=== PATIENT | male | born 1955 | race Caucasian/White ===

== ENCOUNTER 2020-09-15 10:10 | Emergency (ER) | payer OTHER, SELFPAY ==
[2020-09-15 10:32] VITALS: BP 133/76; PULSE 72; RESP 18; TEMP 36.6; O2SAT 96; BMI 30.5
--- NOTE | 2020-09-15 10:39 | CT_ITS ---
EXAMINATION: CT ABDOMEN AND PELVIS WITHOUT CONTRAST CLINICAL INFORMATION: Left-sided abdominal and flank pain COMPARISON: Previous abdominal ultrasound from 2011 TECHNIQUE: Multidetector volumetric imaging was performed from the superior aspect of the liver through the pubic symphysis. Sagittal and coronal reformatted images were obtained on the technologist's workstation. This CT examination was performed using dose optimization techniques as appropriate, variously including the following: *Automated exposure control *Adjustment of mA and/or kV according to patient size (this includes techniques or standardized protocols for targeted exams where dose is matched to indication/reason for exam; i.e. extremities or head) *Use of iterative reconstruction technique DLP: 579 mGy-cm FINDINGS: LUNG BASES: The visualized lung bases are unremarkable. LIVER, GALLBLADDER, AND BILIARY TREE: The liver is normal in size, shape, and attenuation. No focal hepatic lesion or biliary ductal dilatation is present. The gallbladder is unremarkable with no evidence of radiopaque gallstones, gallbladder wall thickening, or obvious pericholecystic inflammatory changes. PANCREAS: Unremarkable. SPLEEN: Unremarkable. ADRENAL GLANDS: Unremarkable. KIDNEYS AND URETERS: There are 2 small 1 to 2 mm nonobstructing stones in the upper and midpole of the right kidney. No left renal stone is seen. No hydronephrosis, ureteral dilatation or ureteral stone is seen. BLADDER: Not optimally distended and not well evaluated. GASTROINTESTINAL TRACT: There is mild diverticulosis of the colon. Small and large bowel is otherwise unremarkable. The appendix is unremarkable. The stomach is unremarkable. ABDOMINAL WALL: There may be a small left inguinal hernia containing fat. LYMPH NODES: Normal. VASCULAR: Unremarkable. PELVIC VISCERA: Unremarkable. OSSEOUS STRUCTURES: There are mild degenerative changes of the spine. There are several small sclerotic lesions in the pelvis, largest measuring 7 mm in the left iliac bone next to the sacroiliac joint. This is these are nonspecific and may represent bone islands. CT/CT abdomen pelvis wo con IMPRESSION: Small nonobstructing right renal stones. No left-sided stone or hydronephrosis seen. Mild diverticulosis of the colon.
[2020-09-15 11:18] LABS: Glucose Urine UA 500 MG/DL (NEG); Leukocyte Esterase Urine NEG (NEG); MANUAL DIFF FLAG NO; Nitrite Urine NEG (NEG); PH 5.5 (5.0-8.0); Specific Gravity - Urine 1.025 (1.005-1.025); Urine Blood NEG (NEG); Urine Ketones NEG (NEG); Urine Protein NEG (NEG-TRACE)
[2020-09-15 11:19] LABS: Basophils Percent Auto 0.5 % (0-2); Eosinophils Absolute Auto 0.2 X10*3/uL (0.0-0.4); Eosinophils Percent Auto 2.9 % (0-4); Hematocrit 48.5 % (42-52); Hemoglobin 15.7 g/dl (14.0-18.0); Imm Gran Abs Auto 0.01 X10*3/uL (0.00-0.03); Imm Gran Pct Auto 0.2 % (0.0-0.4); Lymphocytes Absolute Auto 2.2 X10*3/uL (1.2-4.9); Lymphocytes Percent Auto 35.3 % (20-40); Mean Corpuscular HGB Conc 32.4 g/dl (31.0-36.0); Mean Corpuscular Hemoglobin 26.5 pg (27.0-33.0); Mean Corpuscular Volume 81.8 fL (80-98); Mean Platelet Volume 10.9 fL (9.4-12.4); Monocytes Absolute Auto 0.6 X10*3/uL (0.1-1.2); Monocytes Percent Auto 10.3 % (2-11); Neutrophils Absolute Auto 3.2 X10*3/uL (2.0-8.3); Neutrophils Percent Auto 50.8 % (45-73); Platelet Count 178 X10*3/uL (160-400); Red Blood Count 5.93 X10*6/uL (4.60-5.80); Red Cell Distribution Width 14.6 % (11.0-16.0); White Blood Count 6.2 X10*3/uL (4.8-10.8)
[2020-09-15] MEDS: Ketorolac Tromethamine 30 MG/ML VIAL IM (11:20)
[2020-09-15 11:22] LABS: Appearance Urine CLEAR; Color Urine YELLOW
[2020-09-15 11:31] LABS: RBC Urine 0-2 /HPF (0); Squamous Epithelial Cell Urine TRACE /LPF; WBC Urine 0-2 /HPF (0-4)
--- NOTE | 2020-09-15 11:38 | ED.ABDPAIN ---
HPI - Abdominal Pain General Chief Complaint: Abdominal Pain Stated Complaint: back pain Time Seen by Provider: 09/15/20 10:38 Source: patient Mode of arrival: ambulatory Limitations: no limitations History of Present Illness HPI narrative: 61-year-old male with past medical significant for type 2 diabetes, dyslipidemia, hypertension, depression who presents ambulatory with complaint of left-sided lower back pain that radiates to the left side lower abdomen has been going on for the past 1 week. Care doctor on Tuesday however pain did not improve so he was advised to come here. Denies any nausea vomiting or diarrhea. Denies any hematuria or dysuria. Denies any injury. Pain is somewhat reproducible with certain body movements. States he had similar episodes in the past where he thinks it may be related to his liver but he is not sure. Denies any alcohol use. MD elicited complaint: abdominal pain Pertinent past history: none Onset (ago): day(s) Pain Consistency: intermittent Location: L flank Severity: mild Quality: aching Radiation: LLQ Migration to: no migration and LLQ Exacerbating factors: movement Relieving factors: nothing Associated symptoms: denies other symptoms Related Data Previous Rx's Medication Instructions Recorded cyclobenzaprine 5 mg PO TID PRN #20 tab 09/15/20 naproxen 500 mg PO BID PRN #14 tab 09/15/20 Allergies Allergy/AdvReac Type Severity Reaction Status Date / Time No Known Allergies Allergy Unverified 07/10/20 15:19 Seasonale Allergy Unknown Uncoded 06/11/20 00:00 Review of Systems Review of Systems Constitutional: No Weight loss, No Fever, No Chills, No Night Sweats, No Fatigue, No Malaise ENT/Mouth: No Hearing loss, No Ear Pain, No Nasal Congestion, No Sinus Pain, No Hoarseness, No sore throat, No Rhinorrhea, No Swallowing Difficulty Eyes: No Eye Pain, No Swelling, No Redness, No Foreign Body, No Discharge, No Vision Changes Cardiovascular: No Chest Pain, No SOB, No Dyspnea on Exertion, No Orthopnea, No Edema, No Palpitations Respiratory: No Cough, No Sputum, No Wheezing, No Smoke Exposure, No Dyspnea Gastrointestinal: No Nausea, No Vomiting, No Diarrhea, No Constipation, + abdominal Pain, No Hematochezia, No Melena Genitourinary: No Dysuria, No Urinary Frequency, No Hematuria, No Urinary Incontinence, No Urgency, No Flank Pain, No Urinary Flow Changes, No Hesitancy Musculoskeletal: No joint pain, No Myalgias, No Joint Swelling Skin: No Skin Lesions, No rash Neuro: No Weakness, No Numbness, No Paresthesias, No Loss of Consciousness, No Dizziness, No Headache Psych: No Anxiety/Panic Heme/Lymph: No Bruising, No Bleeding,No Lymphadenopathy Endocrine: No Polyuria, No Polydipsia, No Temperature Intolerance Yes all other systems are reviewed and are negative Physical Exam Vital Signs: Vital Signs: Last Vital Signs Temp 98 F 09/15/20 10:32 Pulse 72 09/15/20 10:32 Resp 18 09/15/20 10:32 BP 133/76 09/15/20 10:32 Pulse Ox 96 09/15/20 10:32 Body Mass Index 30.5 Reviewed Course Course Course Narrative: Labs overall stable. UA noninfected. No hematuria. CT of the abdomen pelvis without contrast shows small nonobstructing right renal stone. No left-sided stone or hydronephrosis seen. Mild diverticulosis of the colon without diverticulitis. AP/exam more indicative of musculoskeletal in etiology. Will discharge home with short course of NSAIDs/muscle relaxants and outpatient follow-up. Patient verbalized understanding and stable for discharge. All traction conducted in the presence of trolley wire installer throughout the ED visit. MDM - Abdominal Pain Differential Diagnosis Differential diagnosis: Likely abdominal pain, calculus of kidney and renal colic; Unlikely aortic dissection, acute appendicitis, bowel perforation, constipation, diverticulitis, gastroenteritis, mesenteric ischemia, pancreatitis, peptic ulcer disease and small bowel obstruction Medical Records Attestation: I reviewed the patient's medical records. Lab Data Attestation: I reviewed the patient's lab results. Result diagrams: 09/15/20 11:11 09/15/20 11:11 Labs: Lab Results 09/15/20 09/15/20 09/15/20 Range/Units 11:11 11:11 11:11 WBC 6.2 (4.8-10.8) X10*3/uL RBC 5.93 H (4.60-5.80) X10*6/uL Hgb 15.7 (14.0-18.0) g/dl Hct 48.5 (42-52) % MCV 81.8 (80-98) fL MCH 26.5 L (27.0-33.0) pg MCHC 32.4 (31.0-36.0) g/dl RDW 14.6 (11.0-16.0) % Plt Count 178 (160-400) X10*3/uL MPV 10.9 (9.4-12.4) fL Immature Gran % (Auto) 0.2 (0.0-0.4) % Neut % (Auto) 50.8 (45-73) % Lymph % (Auto) 35.3 (20-40) % [place] % (Auto) 10.3 (2-11) % Eos % (Auto) 2.9 (0-4) % Baso % (Auto) 0.5 (0-2) % Lymph # (Auto) 2.2 (1.2-4.9) X10*3/uL [place] # (Auto) 0.6 (0.1-1.2) X10*3/uL Eos # (Auto) 0.2 (0.0-0.4) X10*3/uL Baso # (Auto) 0.0 (0.0-0.2) X10*3/uL Abs Immat Gran (auto) 0.01 (0.00-0.03) X10*3/uL Absolute Neuts (auto) 3.2 (2.0-8.3) X10*3/uL Absolute Nucleated RBC 0.000 (0.0-0.012) X10*3/uL Nucleated RBC % (auto) 0.0 (0.0-0.2) /100WBC Sodium 136 (135-145) mmol/L Potassium 4.1 (3.3-5.1) mmol/l Chloride 103 (96-108) mmol/L Carbon Dioxide 25 (22-29) mmol/L Anion Gap 12 (12-20) BUN 14 (9-16) mg/dL Creatinine 0.68 (0.5-1.4) mg/dL Estim Creat Clear Calc 106.6 Estimated GFR > 60 Random Glucose 117 H (60-115) mg/dL Calcium 8.7 (8.4-10.2) mg/dL Total Bilirubin 0.6 (0.0-1.0) mg/dL AST 18 (5-37) U/L ALT 27 (0-40) U/L Alkaline Phosphatase 58 (39-117) U/L Total Protein 6.9 (6.5-8.0) g/dL Albumin 4.2 (3.5-5.0) g/dL Urine Color YELLOW Urine Appearance CLEAR Urine pH 5.5 (5.0-8.0) Ur Specific Council 1.025 (1.005-1.025) Urine Protein NEG (NEG-TRACE) MG/DL Urine Glucose (UA) 500 H (NEG) MG/DL Urine Ketones NEG (NEG) MG/DL Urine Blood NEG (NEG) Urine Nitrite NEG (NEG) Ur Leukocyte Esterase NEG (NEG) Urine RBC 0-2 (0) /HPF Urine WBC 0-2 (0-4) /HPF Ur Squamous Epith Cells TRACE /LPF Urine Bacteria NONE /LPF Imaging Data CT scan - abdomen: Radiologist's impression: [place] [id number] CT Scan Report Signed Patient: Adán LauMR#: [id number] : 7Acct:[id number] Age/Sex: 64 / MADM Date: 09/15/20 Loc: HO.ED Attending Dr: Ordering Physician: Monroe Avalos NP Date of Service: 09/15/20 Procedure(s): CT abdomen pelvis wo con Accession Number(s): [id number] cc: Monroe Avalos NP~ EXAMINATION: CT ABDOMEN AND PELVIS WITHOUT CONTRAST CLINICAL INFORMATION: Left-sided abdominal and flank pain COMPARISON: Previous abdominal ultrasound from 2011 TECHNIQUE: Multidetector volumetric imaging was performed from the superior aspect of the liver through the pubic symphysis. Sagittal and coronal reformatted images were obtained on the technologist's workstation. This CT examination was performed using dose optimization techniques as appropriate, variously including the following: *Automated exposure control *Adjustment of mA and/or kV according to patient size (this includes techniques or standardized protocols for targeted exams where dose is matched to indication/reason for exam; i.e. extremities or head) *Use of iterative reconstruction technique DLP: 579 mGy-cm FINDINGS: LUNG BASES: The visualized lung bases are unremarkable. LIVER, GALLBLADDER, AND BILIARY TREE: The liver is normal in size, shape, and attenuation. No focal hepatic lesion or biliary ductal dilatation is present. The gallbladder is unremarkable with no evidence of radiopaque gallstones, gallbladder wall thickening, or obvious pericholecystic inflammatory changes. PANCREAS: Unremarkable. SPLEEN: Unremarkable. ADRENAL GLANDS: Unremarkable. KIDNEYS AND URETERS: There are 2 small 1 to 2 mm nonobstructing stones in the upper and midpole of the right kidney. No left renal stone is seen. No hydronephrosis, ureteral dilatation or ureteral stone is seen. BLADDER: Not optimally distended and not well evaluated. GASTROINTESTINAL TRACT: There is mild diverticulosis of the colon. Small and large bowel is otherwise unremarkable. The appendix is unremarkable. The stomach is unremarkable. ABDOMINAL WALL: There may be a small left inguinal hernia containing fat. LYMPH NODES: Normal. VASCULAR: Unremarkable. PELVIC VISCERA: Unremarkable. OSSEOUS STRUCTURES: There are mild degenerative changes of the spine. There are several small sclerotic lesions in the pelvis, largest measuring 7 mm in the left iliac bone next to the sacroiliac joint. This is these are nonspecific and may represent bone islands. CT/CT abdomen pelvis wo con IMPRESSION: Small nonobstructing right renal stones. No left-sided stone or hydronephrosis seen. Mild diverticulosis of the colon. Dictated By:WILLY CHASE MD Signed By:<Electronically signed by WILLY CHASE MD in OV>09/15/20 1132 DD/ 1039 TD/TT: Tight Barrel Inspector: USAMA Discharge Plan Discharge Clinical Impression: Strain of lumbar region Patient Disposition: Home, Self-Care Instructions: Low Back Strain (ED), Lower Back Exercises (ED) Additional Instructions: Your blood work as well as the CT scan of your abdomen pelvis today did not show any signs of acute infection or kidney stone The pain that you are having is likely related to a muscle strain Take the muscle relaxants as prescribed Return if any concerns or worsening symptoms Otherwise follow up with her primary care doctor as instructed Thank you Prescriptions: New cyclobenzaprine 10 mg tablet 5 mg PO TID PRN (Reason: muscle spasm) Qty: 20 RF: 0 naproxen 500 mg tablet 500 mg PO BID PRN (Reason: pain) Qty: 14 RF: 0 PMFSH Past Medical History Medical History Depression GERD (gastroesophageal reflux disease) Hyperlipidemia Hypertension Non-insulin dependent diabetes mellitus Social History Social History Alcohol intake: never Smoking Status: Never smoker Use of substances other than those prescribed or required for medical reasons: No Advance Directives: Yes Advance Directives Information Provided: No Advance Directives on File: No
[2020-09-15 11:48] LABS: Alanine Aminotransferase 27 U/L (0-40); Albumin Level 4.2 g/dL (3.5-5.0); Alkaline Phosphatase 58 U/L (39-117); Anion Gap 12 (12-20); Aspartate Amino Transferase 18 U/L (5-37); Bilirubin Total 0.6 mg/dL (0.0-1.0); Blood Urea Nitrogen 14 mg/dL (9-16); Calcium 8.7 mg/dL (8.4-10.2); Carbon Dioxide 25 mmol/L (22-29); Chloride 103 mmol/L (96-108); Creatinine Clr Calc Pharmacy 106.6; Estimated Glomerular Filt Rate > 60; Glucose Random 117 mg/dL (60-115); Potassium 4.1 mmol/l (3.3-5.1); Sodium 136 mmol/L (135-145); Total Protein 6.9 g/dL (6.5-8.0)
== END 2020-09-15 12:52 | disposition home or self-care (01) ==
PROVIDERS: Nurse Practitioner Primary Care; Emergency Provider Emergency Medicine Emergency Medical Services; PCP Family Medicine
DX: S39.012A Strain of muscle, fascia and tendon of lower back, initial encounter (principal); R10.32 Left lower quadrant pain; X58.XXXA Exposure to other specified factors, initial encounter; Y93.9 Activity, unspecified; Y92.9 Unspecified place or not applicable; Y99.9 Unspecified external cause status; Z79.899 Other long term (current) drug therapy
CPT/HCPCS: 36415; 74176; 80053; 81001; 85025; 96372; 99283; 99284; J1885

== ENCOUNTER 2020-12-05 09:46 | Outpatient (REF) | payer OTHER, SELFPAY ==
--- NOTE | 2020-12-05 10:30 | MHC.AU.P13 ---
Hearing Aid Evaluation- Binaural Date of Visit: 12/05/20 Clinical Education Assistant Used: Declined by Patient Description of Hearing: Bilateral moderate dropping to profound sensorineural hearing loss. Current Hearing Instrument Information: None Additional Information: Due to the degree of hearing loss, medical clearance was provided by Dr. Bhatt for binaural amplification as part of the remediation process. Discussed appropriate style of hearing aids for the loss. Patient does not have manual dexterity concerns. Hearing Instrument Selection: Right Ear: Casino Enforcement Agent: Phonak Model: Kidoseo P 70-13T Battery Size: 13 Color: Graphite Loomis It Quality Analyst: #2 Medium Type of Dome: Power Dome Left Ear: Casino Enforcement Agent: Phonak Model: Audeo P-13T Battery Size: 13 Color: Graphite Loomis It Quality Analyst: #2 Medium Type of Dome: Power Dome Plan: Plan of Care for Hearing Instrument Fitting: Patient wishes to purchase hearing aids as prescribed *Hearing Aid Fitting appointment scheduled. Will ask if patient needs sign language interpreter for next visit. *Medical clearance is in chart. Diagnosis Code(s): Primary Diagnosis: H90.3 Bilateral Sensorineural Hearing Loss Services Performed: Hearing Aid Evaluation Type: HAE B: Binaural 3rd Republican Signature: Provider: Janis Hernandez CCC-A
== END 2020-12-05 09:47 | disposition home or self-care (01) ==
LOC: HO.HAP 09:46
PROVIDERS: Visit Provider Family Medicine
DX: Z46.1 Encounter for fitting and adjustment of hearing aid (principal); H90.3 Sensorineural hearing loss, bilateral
CPT/HCPCS: 92591

== ENCOUNTER 2020-12-17 09:24 | Emergency (ER) | payer OTHER, SELFPAY ==
--- NOTE | ~2020-12-17 | XR_ITS ---
EXAMINATION: XR SHOULDER, RIGHT CLINICAL INFORMATION: Shoulder pain COMPARISON: None TECHNIQUE: AP external rotation, Grashey, scapular Y, and axillary views of the right shoulder. FINDINGS: There is mild acromioclavicular osteoarthritis. Glenohumeral joint is well preserved. No fracture. Alignment is anatomic. Soft tissues are normal with no abnormal calcifications. XR/XR shoulder RT min 2V IMPRESSION: Mild right acromioclavicular joint arthrosis. No fracture or dislocation seen.
[2020-12-17 09:56] VITALS: BP 125/69; PULSE 73; RESP 16; TEMP 36.3; O2SAT 96; BMI 29.6
--- NOTE | 2020-12-17 10:35 | ED_ITS ---
HPI - Extremity Problem General Chief complaint: Extremity Injury, Upper Stated complaint: arm pain Time Seen by Provider: 12/17/20 09:36 Source: patient Mode of arrival: ambulatory History of Present Illness HPI Narrative: 65-year-old male with a past medical history of depression, GERD, hyperlipidemia, hypertension, diabetes presenting to the ED complaining of atraumatic right shoulder pain x1 week. Admits pain worse with movement. D enies known injury/trauma or falls, numbness, tingling, weakness, chest pain, shortness of breath MD Complaint: extremity pain Related Data Previous Rx's Medication Instructions Recorded cyclobenzaprine 5 mg PO TID PRN #20 tab 09/15/20 naproxen 500 mg PO BID PRN #14 tab 09/15/20 acetaminophen [Tylenol Extra 500 mg PO Q6H PRN #20 tab 12/17/20 Strength] cyclobenzaprine 5 mg PO Q8H PRN 5 Days #14 tab 12/17/20 lidocaine [Lidoderm] 1 patch TOPICAL DAILY PRN #30 ea 12/17/20 MDD remove after 12 hours naproxen 500 mg PO BID PRN 10 Days #20 tab 12/17/20 Allergies Allergy/AdvReac Type Severity Reaction Status Date / Time No Known Allergies Allergy Unverified 07/10/20 15:19 Seasonale Allergy Unknown Uncoded 06/11/20 00:00 Review of Systems Review of Systems: Constitutional: No Fever, No Chills Cardiovascular: No Chest Pain, No SOB Respiratory: No Cough Gastrointestinal: No Nausea, No Vomiting Genitourinary:, No Dysuria, No Hematuria, No Urinary Incontinence Musculoskeletal: + joint pain, No Myalgias, No Joint Swelling Skin: No Skin Lesions, No rash Neuro: No Weakness, No Numbness, No Paresthesias Yes all other systems are r eviewed and are negative PMFSH Past Medical History Attestation statement: The following information was validated with the patient. Medical History Depression GERD (gastroesophageal reflux disease) Hyperlipidemia Hypertension Non-insulin dependent diabetes mellitus Social History Social History Alcohol intake: never Smoking Status: Never smoker Smoked in Last 30 Days: No Use of substances other than those prescribed or required for medical reasons: No Advance Directives: Yes Advance Directives Information Provided: Yes Advance Directives on File: No Physical Exam Vital Signs: Vital Signs: Last Vital Signs Temp 97.4 F 12/17/20 09:56 Pulse 73 12/17/20 09:56 Resp 16 12/17/20 09:56 BP 125/69 12/17/20 09:56 Pulse Ox 96 12/17/20 09:56 Body Mass Index 29.6 Const: General: cooperative, healthy appearing and comfortable Orientation/consciousness: patient oriented x3 Limitations: no limitations HENMT: Head: Yes normal to inspection Ears: hearing grossly normal bilaterally General nose exam: Normal external nose present Face and sinus: Yes normal facial exam Eyes: General: appearance normal, both eyes and all related structures EOM: EOMs intact bilaterally Neck: Neck: Yes normal visual inspection Resp: Effort & Inspection: normal respiratory effort Cardio: Rate: regular rate Peripheral pulses: radial pulses present Skin: Rashes: no rashes Wounds: no wounds Neuro: General: patient oriented x3 Extrem: Other: Right shoulder with mild tenderness to palpation. Decreased abduction and internal rotation secondary to pain. Neurovascularly intact. No crepitus. No deformity Course Course Course Narrative: XR shoulder RT min 2V IMPRESSION: Mild right acromioclavicular joint arthrosis. No fracture or dislocation seen. MDM - Extremity (Nontraumatic) MDM Narrative Medical decision making narrative: On exam VSS, NAD/well-appearing. Concern for arthritic pain/MSK pain. Lower concern for fracture/dislocation or ACS. Will obtain an EKG Plan: EKG, x-ray ECG Data Attestation EKG: I personally reviewed and interpreted this ECG as follows: ECG interpretation date: 12/17/20 ECG interpretation time: 10:52 Prior ECG tracings: available for review Interpretation: EKG normal sinus rhythm with a rate of 66. Nonischemic. No STEMI. Discharge Plan Discharge Clinical Impression: Acromioclavicular joint arthritis Qualifiers: Laterality: right Qualified Code(s): M19.011 - Primary osteoarthritis, right shoulder Patient Disposition: Home, Self-Care Instructions: Arthritis (ED) Additional Instructions: Your x-ray shows arthritis of her shoulder. Flexeril as a muscle relaxer, take at night as it makes you drowsy, do not drive, drink alcohol, or operate machinery while taking it. Naproxen as an anti-inflammatory/pain medication, take with food. Lidoderm patches or numbing patches, apply to painful area. In addition take Tylenol. Follow up with her primary care doctor. Guerrero radiograf?a muestra artritis en guerrero hombro. Flexeril kristina relajante muscular, t?guzman por la noche ya que le produce somnolencia, no conduzca, no anita alcohol ni utilice maquinaria mientras lo serafin. El naproxeno kristina medicamento antiinflamatorio / analg?sico, t?guzman con las comidas. Los parches de Lidoderm o los parches adormecedores se aplican en el ?dianne dolorida. Adem?s, tome Tylenol. Margarette un seguimiento con guerrero m?dico de atenci?n primaria. Prescriptions: New cyclobenzaprine 5 mg tablet 5 mg PO Q8H PRN (Reason: pain (scale score 7-10)) 5 Days Qty: 14 RF: 0 lidocaine [Lidoderm] 5 % adhesive patch,medicated 1 patch topical DAILY MDD remove after 12 hours PRN (Reason: pain) Qty: 30 RF: 0 acetaminophen [Tylenol Extra Strength] 500 mg tablet 500 mg PO Q6H PRN (Reason: pain or fever) Qty: 20 RF: 0 naproxen 500 mg tablet 500 mg PO BID PRN (Reason: pain) 10 Days Qty: 20 RF: 0 No Action cyclobenzaprine 10 mg tablet 5 mg PO TID PRN (Reason: muscle spasm) Qty: 20 RF: 0 naproxen 500 mg tablet 500 mg PO BID PRN (Reason: pain) Qty: 14 RF: 0 Referrals: Antonella Burnham MD [Primary Care Provider] - 2 days Print Language: Moldovan
--- NOTE | 2020-12-17 10:36 | ECG_ITS ---
Test Reason : R ARM PAIN Blood Pressure : / mmHG Vent. Rate : 066 BPM Atrial Rate : 066 BPM P-R Int : 150 ms QRS Dur : 092 ms QT Int : 386 ms P-R-T Axes : 020 -28 -01 degrees QTc Int : 404 ms Normal sinus rhythm Voltage criteria for left ventricular hypertrophy Abnormal ECG When compared with ECG of 18-JUN-2017 18:51, No significant change was found Referred By: Marj Henry Electronically Signed By:AMY LEMUS MD
== END 2020-12-17 11:25 | disposition home or self-care (01) ==
PROVIDERS: Emergency Provider Emergency Medicine; PCP Family Medicine
DX: M19.011 Primary osteoarthritis, right shoulder (principal); M25.511 Pain in right shoulder; I10 Essential (primary) hypertension; E11.9 Type 2 diabetes mellitus without complications; Z79.899 Other long term (current) drug therapy
CPT/HCPCS: 73030; 93005; 99283

== ENCOUNTER 2020-12-22 09:50 | Outpatient (REF) | payer OTHER, SELFPAY | END 2020-12-22 09:51 | disposition home or self-care (01) | LOC: HO.HAP 09:50 | PROVIDERS: Visit Provider Family Medicine | DX: Z46.1 Encounter for fitting and adjustment of hearing aid (principal); H90.3 Sensorineural hearing loss, bilateral | CPT/HCPCS: 92595; V5011; V5020; V5160; V5261 ==

== ENCOUNTER 2021-01-05 09:35 | Outpatient (REF) | payer OTHER, SELFPAY | END 2021-01-05 09:36 | disposition home or self-care (01) | LOC: HO.HAP 09:35 | PROVIDERS: Visit Provider Family Medicine | DX: Z13.89 Encounter for screening for other disorder (principal) ==

== ENCOUNTER 2021-01-14 15:27 | Emergency (ER) | payer OTHER, SELFPAY ==
[2021-01-14 17:30] VITALS: BP 120/63; PULSE 66; RESP 16; TEMP 37.1; O2SAT 98; BMI 29.9
--- NOTE | 2021-01-14 17:43 | ED_ITS ---
HPI - Extremity Problem General Chief complaint: Extremity Injury, Upper Stated complaint: Shoulder pain Time Seen by Provider: 01/14/21 17:13 Source: patient Mode of arrival: ambulatory History of Present Illness HPI Narrative: 65-year-old male with a past medical history of hyperlipidemia, hypertension, diabetes, depression, GERD to the ED complaining of acute on chronic right shoulder pain x1 month. Admits was seen and treated in the ED previously for similar symptoms, had x-rays that were WNL, was given medications with minimal relief. Reports ran out of medications, denies known fall/trauma or injury, reports continued pain. Denies CP/SOB. Denies numbness, tingling, weakness, CP/SOB MD Complaint: extremity pain Related Data Previous Rx's Medication Instructions Recorded cyclobenzaprine 5 mg PO TID PRN #20 tab 09/15/20 naproxen 500 mg PO BID PRN #14 tab 09/15/20 acetaminophen [Tylenol Extra 500 mg PO Q6H PRN #20 tab 12/17/20 Strength] cyclobenzaprine 5 mg PO Q8H PRN 5 Days #14 tab 12/17/20 lidocaine [Lidoderm] 1 patch TOPICAL DAILY PRN #30 ea 12/17/20 MDD remove after 12 hours naproxen 500 mg PO BID PRN 10 Days #20 tab 12/17/20 acetaminophen [Tylenol Extra 500 mg PO Q6H PRN #20 tab 01/14/21 Strength] cyclobenzaprine 5 mg PO Q8H PRN 5 Days #14 tab 01/14/21 lidocaine [Lidoderm] 1 patch TOPICAL DAILY PRN #30 ea 01/14/21 MDD remove after 12 hours naproxen 500 mg PO BID PRN 10 Days #20 tab 01/14/21 Allergies Allergy/AdvReac Type Severity Reaction Status Date / Time No Known Allergies Allergy Unverified 07/10/20 15:19 Seasonale Allergy Mild Nasal Uncoded 01/14/21 17:36 congestion Review of Systems Review of Systems: Constitutional: No Fever, No Chills Cardiovascular: No Chest Pain, No SOB Musculoskeletal: + joint pain, No Myalgias, No Joint Swelling Skin: No rash Neuro: No Weakness, No Numbness, No Paresthesias Yes all other systems are reviewed and are negative PMFSH Past Medical History Attestation statement: The following information was validated with the patient. Medical History Depression GERD (gastroesophageal reflux disease) Hyperlipidemia Hypertension Non-insulin dependent diabetes mellitus Social History Social History Alcohol intake: never Smoking Status: Never smoker Advance Directives: No Advance Directives Information Provided: Yes Physical Exam Vital Signs: Vital Signs: Last Vital Signs Temp 98.7 F 01/14/21 17:30 Pulse 66 01/14/21 17:30 Resp 16 01/14/21 17:30 BP 120/63 01/14/21 17:30 Pulse Ox 98 01/14/21 17:30 Body Mass Index 29.9 Const: General: cooperative and healthy appearing Orientation/consciousness: patient oriented x3 Limitations: no limitations HENMT: Head: Yes normal to inspection Ears: hearing grossly normal bilaterally General nose exam: Normal external nose present Face and sinus: Yes normal facial exam Eyes: General: appearance normal, both eyes and all related structures EOM: EOMs intact bilaterally Neck: Neck: Yes normal visual inspection Resp: Effort & Inspection: normal respiratory effort Cardio: Peripheral pulses: radial pulses present Skin: Rashes: no rashes Wounds: no wounds Neuro: General: patient oriented x3, gait normal, tone normal and moves all extremities Gait exam (Neuro): Normal gait present Extrem: Other: Right trapezius and deltoid with MSK tenderness to palpation. No bony deformity/tenderness. No erythema/crepitus. Neurovascularly intact distally. Abduction and internal rotation limited secondary to pain General: Yes normal to inspection MDM - Extremity (Nontraumatic) MDM Narrative Medical decision making narrative: On exam VSS, NAD/well-appearing, physical exam as above. Likely MSK pain/strain vs tendinitis/degenerative disease X-rays from 12/17/2020 showing right acromioclavicular joint arthrosis Unlikely acute fracture/dislocation. Low concern for ACS -patient just had 28 pills of tramadol prescribed on 12/30/2020 Discharge Plan Discharge Clinical Impression: Pain in deltoid Qualifiers: Laterality: right Qualified Code(s): M79.18 - Myalgia, other site Arthralgia Qualifiers: Joint pain location: shoulder Laterality: right Qualified Code(s): M25.511 - Pain in right shoulder Patient Disposition: Home, Self-Care Instructions: Arthralgia (ED) Additional Instructions: Your pain is likely musculoskeletal Flexeril is a muscle relaxer, take at night as it makes you drowsy, do not drive, drink alcohol, or operate machinery while taking it Naproxen as an anti-inflammatory / pain medication, take with food Lidoderm patches are numbing patches, apply to painful area In addition take Tylenol at home If symptoms persist or worsen, pain becomes unbearable, you developed urinary retention or incontinence, or weakness return to the ED Es probable que godinez dolor sea musculoesquel?april Flexeril es un relajante muscular, t?guzman por la noche ya que le produce somnolencia, no conduzca, no anita alcohol ni utilice maquinaria mientras lo serafin. Naproxeno kristina medicamento antiinflamatorio / analg?sico, eladio con alimentos. Los parches de Lidoderm son parches que adormecen, se aplican al ?dianne dolorida Adem?s, tome Tylenol en casa. Si los s?ntomas persisten o empeoran, el dolor se vuelve insoportable, desarroll? retenci?n urinaria o incontinencia, o debilidad regrese al servicio de urgencias Prescriptions: New cyclobenzaprine 5 mg tablet 5 mg PO Q8H PRN (Reason: pain (scale score 7-10)) 5 Days Qty: 14 RF: 0 lidocaine [Lidoderm] 5 % adhesive patch,medicated 1 patch topical DAILY MDD remove after 12 hours PRN (Reason: pain) Qty: 30 RF: 0 naproxen 500 mg tablet 500 mg PO BID PRN (Reason: pain) 10 Days Qty: 20 RF: 0 acetaminophen [Tylenol Extra Strength] 500 mg tablet 500 mg PO Q6H PRN (Reason: pain or fever) Qty: 20 RF: 0 No Action cyclobenzaprine 10 mg tablet 5 mg PO TID PRN (Reason: muscle spasm) Qty: 20 RF: 0 naproxen 500 mg tablet 500 mg PO BID PRN (Reason: pain) Qty: 14 RF: 0 cyclobenzaprine 5 mg tablet 5 mg PO Q8H PRN (Reason: pain (scale score 7-10)) 5 Days Qty: 14 RF: 0 lidocaine [Lidoderm] 5 % adhesive patch,medicated 1 patch topical DAILY MDD remove after 12 hours PRN (Reason: pain) Qty: 30 RF: 0 acetaminophen [Tylenol Extra Strength] 500 mg tablet 500 mg PO Q6H PRN (Reason: pain or fever) Qty: 20 RF: 0 naproxen 500 mg tablet 500 mg PO BID PRN (Reason: pain) 10 Days Qty: 20 RF: 0 Referrals: Nguyễn Fontana PA-C [Physician Inspection Supervisor] - 10 days (As needed) Antonella Burnham MD [Primary Care Provider] - 2 days Print Language: Chinese
[2021-01-14] MEDS: Ketorolac Tromethamine 30 MG/ML VIAL IM (18:13)
== END 2021-01-14 18:31 | disposition home or self-care (01) ==
PROVIDERS: Emergency Provider Emergency Medicine; PCP Family Medicine
DX: M25.511 Pain in right shoulder (principal); M79.18 Myalgia, other site; I10 Essential (primary) hypertension; E11.9 Type 2 diabetes mellitus without complications; E78.5 Hyperlipidemia, unspecified; K21.9 Gastro-esophageal reflux disease without esophagitis; Z79.899 Other long term (current) drug therapy
CPT/HCPCS: 96372; 99284; J1885

== ENCOUNTER 2021-02-05 09:51 | Outpatient (REF) | payer OTHER, SELFPAY | END 2021-02-05 09:52 | disposition home or self-care (01) | LOC: HO.HAP 09:51 | PROVIDERS: Visit Provider Family Medicine | DX: Z13.89 Encounter for screening for other disorder (principal) ==

== ENCOUNTER 2022-02-25 09:58 | Outpatient (REF) | payer OTHER, SELFPAY ==
--- NOTE | ~2022-02-25 | US_ITS ---
EXAMINATION: US RETROPERITONEAL LIMITED (AORTA) CLINICAL INFORMATION: Screening. History of smoking. COMPARISON: None TECHNIQUE: [place]-scale, color Doppler and spectral Doppler evaluation of the abdominal aorta. FINDINGS: The aorta is normal. The measurements of the aorta in maximum AP and transverse dimensions respectively are as follows: Proximal: 2.7 x 2.5 cm. Mid: 2.0 x 2.0 cm. Distal: 1.9 x 1.4 cm. PSV: 56.6 cm/s. The measurements of the common iliac arteries in maximum AP and TRV dimensions are as follows: Right Common Iliac Artery: 1.2 x 1.2 cm. Left Common Iliac Artery: 1.1 x 1.2 cm. US/US abdominal aortic aneurysm IMPRESSION: No evidence of aneurysm.
== END 2022-02-25 09:59 | disposition home or self-care (01) ==
LOC: HO.US 09:58
PROVIDERS: Visit Provider Family Medicine
DX: Z13.6 Encounter for screening for cardiovascular disorders (principal); Z87.891 Personal history of nicotine dependence
CPT/HCPCS: 76706

== ENCOUNTER 2023-02-01 10:36 | Emergency (ER) | payer OTHER, SELFPAY ==
--- NOTE | ~2023-02-01 | XR_ITS ---
EXAMINATION: XR CHEST CLINICAL INFORMATION: Chest pain. COMPARISON: CT chest 11/28/2017 TECHNIQUE: Frontal view of the chest was obtained. FINDINGS: No significant abnormality is noted involving the heart, lungs, mediastinum, bony thorax or soft tissues. XR/XR chest 1V IMPRESSION: Unremarkable chest examination.
--- NOTE | 2023-02-01 10:38 | ECG_ITS ---
Test Reason : chest pain Blood Pressure : / mmHG Vent. Rate : 076 BPM Atrial Rate : 076 BPM P-R Int : 148 ms QRS Dur : 092 ms QT Int : 352 ms P-R-T Axes : 018 -29 011 degrees QTc Int : 396 ms Normal sinus rhythm Minimal voltage criteria for LVH, may be normal variant ( R in aVL ) Borderline ECG When compared to the previous EKG of No significant changes seen Referred By: Generic ED Physician Electronically Signed By:AMY LEMUS MD
[2023-02-01 10:48] VITALS: BP 119/84; PULSE 77; RESP 22; TEMP 36.7; O2SAT 96; BMI 30.9
--- NOTE | 2023-02-01 10:51 | ED_ITS ---
HPI - Chest Pain General Chief Complaint: Chest Pain Stated Complaint: Chest pain Time Seen by Provider: 02/01/23 10:51 Source: patient and diplomatic interpreter/translator Mode of arrival: ambulatory Limitations: language barrier History of Present Illness HPI narrative: Patient is a 67 year old assigned male at with a history of chronic pain presenting to the emergency department today with left sided chest pain. Patient states that the pain doesn't go anywhere and is worse with movement and when he pushes on his chest. Patient denies any dizziness, lightheadedness, abdominal pain, nausea, vomiting, fever, chills, blurry vision, double vision, loss of vision, difficulty breathing, shortness of breath, back pain, night sweats, pain with urination, increased urinary frequency, increased urinary urgency, blood in his urine or stool, syncope or a near syncopal episode, recent trauma or falls, bowel incontinence, bladder incontinence, bowel retention, bladder retention, or any other complaints at this time. MD complaint: chest pain Related Data Previous Rx's Medication Instructions Recorded cyclobenzaprine 10 mg tablet 5 mg PO TID PRN muscle spasm #20 09/15/20 tabs naproxen 500 mg tablet 500 mg PO BID PRN pain #14 tabs 09/15/20 acetaminophen 500 mg tablet 500 mg PO Q6H PRN pain or fever 12/17/20 (Tylenol Extra Strength) #20 tabs cyclobenzaprine 5 mg tablet 5 mg PO Q8H PRN pain (scale score 12/17/20 7-10) 5 days #14 tabs lidocaine 5 % topical patch 1 patch topical DAILY PRN pain #30 12/17/20 (Lidoderm) ea naproxen 500 mg tablet 500 mg PO BID PRN pain 10 days #20 12/17/20 tabs acetaminophen 500 mg tablet 500 mg PO Q6H PRN pain or fever 01/14/21 (Tylenol Extra Strength) #20 tabs cyclobenzaprine 5 mg tablet 5 mg PO Q8H PRN pain (scale score 01/14/21 7-10) 5 days #14 tabs lidocaine 5 % topical patch 1 patch topical DAILY PRN pain #30 01/14/21 (Lidoderm) ea naproxen 500 mg tablet 500 mg PO BID PRN pain 10 days #20 01/14/21 tabs Allergies Allergy/AdvReac Type Severity Reaction Status Date / Time No Known Allergies Allergy Unverified 07/10/20 15:19 Seasonale Allergy Mild Nasal Uncoded 01/14/21 17:36 congestion Review of Systems Constitutional: Constitutional: Reports no additional constitutional complaints, Denies chills, Denies fever(s) and Denies night sweats Eyes: Eyes: Reports no additional eye complaints, Denies blurry vision, Denies change in vision, Denies diplopia, Denies eye discharge, Denies loss of vision and Denies eye pain ENT: Denies dizziness Cardiovascular: Cardiovascular: Reports no additional cardiovascular complaints, Reports chest pain, Denies lightheadedness, Denies Loss of Consciousness and Denies dyspnea Respiratory: Respiratory: Reports no additional respiratory complaints and Denies dyspnea Gastrointestinal: Gastrointestinal: Reports no additional gastrointestinal complaints, Denies abdominal pain, Denies melena, Denies hematochezia, Denies change in bowel habits and Denies change in stool character Genitourinary: Genitourinary: Reports no additional male genitourinary complaints, Denies hematuria, Denies oliguria, Denies difficulty urinating, Denies dysuria, Denies urinary frequency, Denies urinary hesitancy, Denies urinary incontinence and Denies urinary urgency Musculoskeletal: Musculoskeletal: Reports no additional musculoskeletal complaints, Denies numbness and Denies tingling Neurologic: Denies dizziness, Denies loss of vision, Denies numbness and Denies tingling Psychiatric: Psychiatric: Reports no additional psychiatric complaints Endocrine: Endocrine: Reports no additional endocrine complaints Hematologic/Lymphatic: Hematologic/Lymphatic: Reports no additional hematologic/lymphatic complaints Allergic/Immunologic: Allergic/Immunologic: Reports no additional allergic/ immunologic complaints [facility] Past Medical History Attestation statement: The following information was validated with the patient. Source: old records reviewed and nursing notes reviewed Medical History Depression GERD (gastroesophageal reflux disease) Hyperlipidemia Hypertension Non-insulin dependent diabetes mellitus Social History Social History Alcohol intake: never Advance Directives: Yes Advance Directives Information Provided: Yes Advance Directives on File: Yes Advance Directives Date on File: 12/17/20 Physical Exam Vital Signs: Vital Signs: Last Vital Signs Temp 98.1 F 02/01/23 10:48 Pulse 77 02/01/23 10:48 Resp 22 H 02/01/23 10:48 BP 119/84 02/01/23 10:48 Pulse Ox 96 02/01/23 10:48 O2 Del Method Room Air 02/01/23 10:48 BMI result Body Mass Index 30.9 Const: General: cooperative, no acute distress, alert and awake Nutritional Appearance: well nourished Orientation/consciousness: patient oriented x3 Limitations: no limitations HEENT: Head: Yes normal to inspection and Yes atraumatic Ears: hearing grossly normal bilaterally and external ears normal General nose exam: Normal external nose present, no nasal discharge noted and no epistaxis Face and sinus: Yes normal facial exam, No abrasion and No laceration Mouth: Normal oral and palatal mucosa present, no drooling and no muffled voice Eyes: General: appearance normal, both eyes and all related structures Periorbital: periorbital findings normal Eyelids: Yes eyelids normal Conjunctivae: conjunctivae normal Pupils: Equal, round and reactive pupils present EOM: EOMs intact bilaterally Neck: Neck: Yes normal visual inspection, Yes full ROM and Yes no lymphadenopathy Chest: Chest palpation & inspection: normal inspection of the chest and normal palpation of entire chest wall Resp: Effort & Inspection: normal respiratory effort and able to speak in complete sentences Auscultation: clear to auscultation bilaterally Cardio: Rate: regular rate Rhythm: regular rhythm GI: Inspection: Yes normal to inspection Neuro: General: patient oriented x3 and moves all extremities Cranial nerves: Yes Equal, round and reactive pupils present Cognition (Neuro): normal cognition Motor exam (neuro): 5/5 motor strength present throughout Sensory Exam: Normal double simultaneous stimulation for sensation Coordination: [id number] test normal Extrem: General: Yes normal to inspection, Yes full ROM and Yes capillary refill normal Psych: Appearance: grossly normal Mental Status: mental status grossly normal Affect: normal affect Attitude: cooperative Thought process: Normal thought process present Thought content: Normal thought content present Insight: Good insight present (Psych) Medications Administered Discontinued Medications Generic Name Dose Route Start Last Admin Trade Name Freq PRN Reason Stop Dose Admin Ketorolac Tromethamine 15 mg 02/01/23 12:09 02/01/23 12:15 Ketorolac Tromethamine 15 Mg/Ml Vial IM 02/01/23 12:10 15 mg ONCE ONE Administration Medical Decision Making Medical Decision Making MDM Narrative: Patient is a 67 year old assigned male at with no reported medical history presenting to the emergency department today with left sided chest wall pain. Patient's physical exam was unremarkable. Patient's blood work was unremarkable. Patient's EKG was unremarkable. Patient's chest x-ray showed no acute process. I explained my physical exam findings as well as all test results to the patient. I answered all questions asked by the patient. I stressed the importance of the patient taking his medication as prescribed. I stressed the importance of the patient following up with his primary care provider. I stressed the importance of the patient returning to the emergency department immediately if his symptoms were to worsen or if he were to develop any dizziness, shortness of breath, difficulty breathing, chest pain, blurry vision, loss of vision, nausea, vomiting, abdominal pain, fever, chills, back pain, or any other complaints. Patient verbalized agreement and understanding with this treatment plan and discharge. Differential Diagnosis Differential Diagnoses: The differential diagnosis associated with the presentation includes chest wall pain Lab Data [facility] Lab Attestation statement: I reviewed the patient's lab results. 02/01/23 11:12 02/01/23 11:12 Labs: Lab Results 02/01/23 02/01/23 02/01/23 Range/Units 11:12 11:12 11:12 WBC 5.5 (4.8-10.8) X10*3/uL RBC 5.52 (4.60-5.80) X10*6/uL Hgb 15.1 (14.0-18.0) g/dl Hct 45.8 (42.0-52.0) % MCV 83.0 (80.0-98.0) fL MCH 27.4 (27.0-33.0) pg MCHC 33.0 (31.0-36.0) g/dl RDW 13.8 (11.0-16.0) % Plt Count 185 (160-400) X10*3/uL MPV 11.3 (9.4-12.4) fL Absolute Nucleated RBC 0.000 (0.0-0.012) X10*3/uL Nucleated RBC % (auto) 0.0 (0.0-0.2) /100WBC Sodium (135-145) mmol/L Potassium (3.3-5.1) mmol/L Chloride (96-108) mmol/L Carbon Dioxide (22-29) mmol/L Anion Gap (12-20) BUN (9-16) mg/dL Creatinine (0.5-1.4) mg/dL Estim Creat Clear Calc Estimated GFR Random Glucose (60-115) mg/dL Calcium (8.4-10.2) mg/dL Total Bilirubin (0.0-1.0) mg/dL AST (5-37) U/L ALT (0-40) U/L Alkaline Phosphatase (39-117) U/L Troponin I High Sens < 2.7 (<3.5-35.0) ng/L B-Natriuretic Peptide < 10 (<100) pg/mL Total Protein (6.5-8.0) g/dL Albumin (3.5-5.0) g/dL COVID-19 ([place]) (Negative) COVID-19 Clin Com 02/01/23 02/01/23 Range/Units 11:12 11:12 WBC (4.8-10.8) X10*3/uL RBC (4.60-5.80) X10*6/uL Hgb (14.0-18.0) g/dl Hct (42.0-52.0) % MCV (80.0-98.0) fL MCH (27.0-33.0) pg MCHC (31.0-36.0) g/dl RDW (11.0-16.0) % Plt Count (160-400) X10*3/uL MPV (9.4-12.4) fL Absolute Nucleated RBC (0.0-0.012) X10*3/uL Nucleated RBC % (auto) (0.0-0.2) /100WBC Sodium 139 (135-145) mmol/L Potassium 4.5 (3.3-5.1) mmol/L Chloride 103 (96-108) mmol/L Carbon Dioxide 27 (22-29) mmol/L Anion Gap 14 (12-20) BUN 17 H (9-16) mg/dL Creatinine 0.77 (0.5-1.4) mg/dL Estim Creat Clear Calc 91.0 Estimated GFR > 60 Random Glucose 163 H (60-115) mg/dL Calcium 9.7 D (8.4-10.2) mg/dL Total Bilirubin 0.5 (0.0-1.0) mg/dL AST 17 (5-37) U/L ALT 31 (0-40) U/L Alkaline Phosphatase 60 (39-117) U/L Troponin I High Sens (<3.5-35.0) ng/L B-Natriuretic Peptide (<100) pg/mL Total Protein 7.0 (6.5-8.0) g/dL Albumin 4.3 (3.5-5.0) g/dL COVID-19 ([place]) Negative (Negative) COVID-19 Clin Com See Note Independent Interpretation I performed an independent interpretation of an: EKG Interpretation: Vent. Rate: 076 BPM ? ? Atrial Rate: 076 BPM P-R Int: 148 ms? QRS Dur: 092 ms QT Int: 352 ms ? ? ? P-R-T Axes: 018 -29 011 degrees QTc Int: 396 ms ? Normal sinus rhythm Minimal voltage criteria for LVH, may be normal variant ( R in aVL ) Borderline ECG DD/ 1041 Radiology Impression Radiologist Impression: My interpretation is in agreement with the radiologist's impression of this imaging study. EXAMINATION: XR CHEST CLINICAL INFORMATION: Chest pain. COMPARISON: CT chest 11/28/2017 TECHNIQUE: Frontal view of the chest was obtained. FINDINGS: No significant abnormality is noted involving the heart, lungs, mediastinum, bony thorax or soft tissues. XR/XR chest 1V IMPRESSION: Unremarkable chest examination. Dictated By: Deangelo Norwood MD Signed By: Electronically signed by Deangelo Norwood MD 02/01/23 1119 Discharge Plan Discharge Clinical Impression: Musculoskeletal pain Patient Disposition: Home, Self-Care Instructions: Musculoskeletal Pain (ED) Additional Instructions: Follow up with your primary care provider. Return to the emergency department immediately if your symptoms worsen or if you develop any dizziness, shortness of breath, difficulty breathing, chest pain, blurry vision, loss of vision, nausea, vomiting, abdominal pain, fever, chills, back pain, or any other complaints. Margarette un seguimiento con godinez proveedor de atenci?n primaria. Regrese al departamen to de emergencias de inmediato si marcy s?ntomas empeoran o si presenta mareos, falta de aire, dificultad para respirar, dolor de pecho, visi?n borrosa, p?rdida de la visi?n, n?useas, v?mitos, dolor abdominal, fiebre, escalofr?os, dolor de espalda o cualquier otras quejas. Prescriptions: No Action cyclobenzaprine 5 mg tablet 5 mg PO Q8H PRN (Reason: pain (scale score 7-10)) 5 Days Qty: 14 0RF lidocaine [Lidoderm] 5 % adhesive patch,medicated 1 patch topical DAILY MDD remove after 12 hours PRN (Reason: pain) Qty: 30 0RF Rx Instructions: leave on most painful area for up to 12 hrs naproxen 500 mg tablet 500 mg PO BID PRN (Reason: pain) 10 Days Qty: 20 0RF acetaminophen [Tylenol Extra Strength] 500 mg tablet 500 mg PO Q6H PRN (Reason: pain or fever) Qty: 20 0RF cyclobenzaprine 10 mg tablet 5 mg PO TID PRN (Reason: muscle spasm) Qty: 20 0RF naproxen 500 mg tablet 500 mg PO BID PRN (Reason: pain) Qty: 14 0RF cyclobenzaprine 5 mg tablet 5 mg PO Q8H PRN (Reason: pain (scale score 7-10)) 5 Days Qty: 14 0RF lidocaine [Lidoderm] 5 % adhesive patch,medicated 1 patch topical DAILY MDD remove after 12 hours PRN (Reason: pain) Qty: 30 0RF Rx Instructions: leave on most painful area for up to 12 hrs acetaminophen [Tylenol Extra Strength] 500 mg tablet 500 mg PO Q6H PRN (Reason: pain or fever) Qty: 20 0RF naproxen 500 mg tablet 500 mg PO BID PRN (Reason: pain) 10 Days Qty: 20 0RF Referrals: Antonella Burnham MD [Primary Care Provider] - Interventions: ED Discharge Assessment Last Done: 02/01/23 12:21 Discharge Date/Time: 02/01/23 12:21 Print Language: Croatian
[2023-02-01 11:19] LABS: Hematocrit 45.8 % (42.0-52.0); Hemoglobin 15.1 g/dl (14.0-18.0); Mean Corpuscular Hemoglobin 27.4 pg (27.0-33.0); Mean Platelet Volume 11.3 fL (9.4-12.4); Platelet Count 185 X10*3/uL (160-400); Red Blood Count 5.52 X10*6/uL (4.60-5.80); Red Cell Distribution Width 13.8 % (11.0-16.0); White Blood Count 5.5 X10*3/uL (4.8-10.8)
[2023-02-01 11:33] LABS: Alanine Aminotransferase 31 U/L (0-40); Albumin Level 4.3 g/dL (3.5-5.0); Alkaline Phosphatase 60 U/L (39-117); Anion Gap 14 (12-20); Aspartate Amino Transferase 17 U/L (5-37); Bilirubin Total 0.5 mg/dL (0.0-1.0); Blood Urea Nitrogen 17 mg/dL (9-16); Calcium 9.7 mg/dL (8.4-10.2); Carbon Dioxide 27 mmol/L (22-29); Chloride 103 mmol/L (96-108); Estimated Glomerular Filt Rate > 60; Glucose Random 163 mg/dL (60-115); Potassium 4.5 mmol/L (3.3-5.1); Sodium 139 mmol/L (135-145)
[2023-02-01 11:37] LABS: COVID-19 Test Negative (Negative); IDNOW Serial# 08D9AD1C
[2023-02-01 11:39] LABS: B Type Natriuretic Peptide < 10 pg/mL (<100)
[2023-02-01 11:40] LABS: Troponin-I High Sensitivity < 2.7 ng/L (<3.5-35.0)
[2023-02-01] MEDS: Ketorolac Tromethamine 15 MG/ML VIAL IM (12:15)
== END 2023-02-01 12:21 | disposition home or self-care (01) ==
PROVIDERS: Physician Assistant Medical; Emergency Provider Emergency Medicine; PCP Family Medicine
DX: R07.89 Other chest pain (principal); M79.10 Myalgia, unspecified site; R06.02 Shortness of breath; Z20.822 Contact with and (suspected) exposure to COVID-19; Z20.828 Contact with and (suspected) exposure to other viral communicable diseases; Z79.899 Other long term (current) drug therapy
CPT/HCPCS: 36415; 71045; 80053; 83880; 84484; 85027; 87635; 93005; 96372; 99283; 99284; J1885

== ENCOUNTER 2023-05-12 17:54 | Outpatient (REF) | payer OTHER, SELFPAY ==
[2023-05-12 18:39] LABS: Creatinine Urine 84.97 mg/dL; Microalbum/Creatinine Ratio Ur 8.2 ug/mg cr
== END 2023-05-12 17:55 | disposition home or self-care (01) ==
LOC: HO.HHCLNP 17:54
PROVIDERS: Visit Provider Family Medicine
DX: E11.65 Type 2 diabetes mellitus with hyperglycemia (principal)
CPT/HCPCS: 82043

== ENCOUNTER 2023-12-29 09:01 | Outpatient (REF) | payer OTHER, SELFPAY ==
[2023-12-29 11:55] LABS: Alanine Aminotransferase 27 U/L (0-40); Albumin Level 4.3 g/dL (3.5-5.0); Alkaline Phosphatase 58 U/L (39-117); Anion Gap 12 (12-20); Aspartate Amino Transferase 20 U/L (5-37); Bilirubin Total 0.4 mg/dL (0.0-1.0); Blood Urea Nitrogen 13 mg/dL (9-16); Calcium 9.6 mg/dL (8.4-10.2); Carbon Dioxide 29 mmol/L (22-29); Chloride 102 mmol/L (96-108); Cholesterol 154 mg/dL (<200); Estimated Glomerular Filt Rate > 60; Glucose Random 145 mg/dL (60-115); HDL Cholesterol 34 mg/dL (>40); LDL Cholesterol Calculated 92 mg/dL (<100); Potassium 4.4 mmol/L (3.3-5.1); Sodium 139 mmol/L (135-145); Total Protein 7.5 g/dL (6.5-8.0); Triglycerides 143 mg/dL (<150)
[2023-12-29 12:23] LABS: Folate 9.9 ng/mL (> or = 4.0); Vitamin B12 564 pg/mL (200-900)
[2023-12-29 12:35] LABS: Creatinine Urine 213.12 mg/dL; Microalbum/Creatinine Ratio Ur 23.9 ug/mg cr (<30)
[2023-12-29 13:34] LABS: Reflex LDLD? No
== END 2023-12-29 09:02 | disposition home or self-care (01) ==
LOC: HO.HHCL 09:01
PROVIDERS: Visit Provider Family Medicine
DX: E11.65 Type 2 diabetes mellitus with hyperglycemia (principal); I10 Essential (primary) hypertension; E78.5 Hyperlipidemia, unspecified
CPT/HCPCS: 36415; 80053; 80061; 82043; 82570; 82607; 82746

== ENCOUNTER 2024-04-04 06:41 | Emergency (ER) | payer OTHER, SELFPAY ==
--- NOTE | ~2024-04-04 | XR_ITS ---
EXAMINATION: XR FINGER, LEFT CLINICAL INFORMATION: Left thumb injury COMPARISON: None available. TECHNIQUE: 3 views of the left thumb. FINDINGS: The first carpometacarpal joint is normal. Mild degenerative narrowing of articular cartilage space and osteophyte formation of the first metacarpophalangeal joint. There is irregular narrowing of the joint space and osteophyte formation of the thumb interphalangeal joint. The mild lateral subluxation of the distal phalanx at this degenerated joint is of uncertain chronicity. On two of the three views, there appears to be a fractured osteophyte of the posterolateral aspect of the distal phalanx but this is of uncertain chronicity. There are no radiopaque foreign bodies in the thumb. No soft tissue gas. 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 * There appears to be a fractured osteophyte of the distal phalanx of the thumb but this is of uncertain chronicity. Also, the mild lateral subluxation of the distal phalanx at the degenerated joint is of uncertain chronicity.
[2024-04-04 07:12] VITALS: BP 140/81; PULSE 88; RESP 16; TEMP 36.5; O2SAT 96; BMI 29.9
--- NOTE | 2024-04-04 09:50 | ED_ITS ---
HPI - Extremity Problem General Chief complaint: Extremity Problem Stated complaint: finger/nail? inj Time Seen by Provider: 04/04/24 09:03 Source: patient, RN notes reviewed and old records reviewed Mode of arrival: ambulatory History of Present Illness ED Provider: Marj Smith PA-C HPI Narrative: 68-year-old male with a past medical history of depression, GERD, HLD, HTN, diabetes, presenting to the ED complaining of left thumb injury s/p hitting with hammer yesterday around 17:00. Denies injury to the area, numbness, tingling, weakness. MD Complaint: extremity pain and extremity swelling Related Data Previous Rx's ?Medication ?Instructions ?Recorded cyclobenzaprine 10 mg tablet 5 mg (1/2 x 10 mg) PO TID PRN 09/15/20 muscle spasm #20 tabs naproxen 500 mg tablet 500 mg PO BID PRN pain #14 tabs 09/15/20 acetaminophen 500 mg tablet 500 mg PO Q6H PRN pain or fever 12/17/20 (Tylenol Extra Strength) #20 tabs cyclobenzaprine 5 mg tablet 5 mg PO Q8H PRN pain (scale score 12/17/20 7-10) 5 days #14 tabs lidocaine 5 % topical patch 1 patch topical DAILY PRN pain #30 12/17/20 (Lidoderm) ea naproxen 500 mg tablet 500 mg PO BID PRN pain 10 days #20 12/17/20 tabs acetaminophen 500 mg tablet 500 mg PO Q6H PRN pain or fever 01/14/21 (Tylenol Extra Strength) #20 tabs cyclobenzaprine 5 mg tablet 5 mg PO Q8H PRN pain (scale score 01/14/21 7-10) 5 days #14 tabs lidocaine 5 % topical patch 1 patch topical DAILY PRN pain #30 01/14/21 (Lidoderm) ea naproxen 500 mg tablet 500 mg PO BID PRN pain 10 days #20 01/14/21 tabs Allergies Allergy/AdvReac Type Severity Reaction Status Date / Time No Known Allergies Allergy Verified 04/04/24 07:13 Seasonale Allergy Mild Nasal Uncoded 01/14/21 17:36 congestion Review of Systems 2 Review of Systems: Constitutional: No Fever, No Chills Cardiovascular: No Chest Pain, No SOB Respiratory: No Cough, No Sputum, No Wheezing Musculoskeletal: + joint pain, No Myalgias, + Joint Swelling Skin: No Skin Lesions, No rash Neuro: No Weakness, No Numbness, No Paresthesias Yes all other systems are reviewed and are negative Constitutional: Constitutional: Reports as per [facility] Past Medical History Attestation statement: The following information was validated with the patient. Source: old records reviewed Medical History Depression GERD (gastroesophageal reflux disease) Hyperlipidemia Hypertension Non-insulin dependent diabetes mellitus Social History Social History Alcohol intake: never Advance Directives: Yes Advance Directives on File: Yes Advance Directives Date on File: 12/17/20 Physical Exam 2 Vital Signs: Vital Signs: Last Vital Signs Temp 97.1 F 04/04/24 10:33 Pulse 72 04/04/24 10:33 Resp 16 04/04/24 10:33 BP 130/84 04/04/24 10:33 Pulse Ox 95 04/04/24 10:33 O2 Del Method Room Air 04/04/24 10:33 BMI result Body Mass Index 29.9 Const: General: cooperative, healthy appearing and no acute distress O rientation/consciousness: patient oriented x3 Limitations: no limitations HEENT: Head: Yes normal to inspection and Yes atraumatic Ears: hearing grossly normal bilaterally General nose exam: Normal external nose present Face and sinus: Yes normal facial exam Eyes: General: appearance normal, both eyes and all related structures EOM: EOMs intact bilaterally Neck: Neck: Yes normal visual inspection and Yes no meningeal signs Resp: Effort & Inspection: normal respiratory effort and no respiratory distress Cardio: Rate: regular rate Peripheral pulses: radial pulses present Skin: Rashes: no rashes Neuro: General: patient oriented x3, tone normal and no meningeal signs C ranial nerves: Yes CN's II-XII intact bilaterally Gait exam (Neuro): Normal gait present Extrem: Other: Please refer to image above. Chronic deformity bilaterally. Left thumb with swelling/ ecchymosis and subungual hematoma. Tender to palpation. Full range of motion intact. Neurovascularly intact. 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 * There appears to be a fractured osteophyte of the distal phalanx of the thumb but this is of uncertain chronicity. Also, the mild lateral subluxation of the distal phalanx at the degenerated joint is of uncertain chronicity. > unclear if fractured osteophyte is acute or chronic, will treat as acute due to recent injury. Low suspicion that subluxation is acute, appears chronic and bilateral >> nail trephination performed. finger splint applied. Recommended orthopedic follow-up Results discussed with patient including worrisome signs and symptoms and strict return precautions, and when to return to the emergency department. They verbalized understanding and feel safe for discharge at this time. Medical Decision Making Medical Decision Making MDM Narrative: 68-year-old male with a past medical history of depression, GERD, HLD, HTN, diabetes, presenting to the ED complaining of left thumb injury s/p hitting with hammer yesterday around 17:00. On exam vital signs stable, NAD, nontoxic appearing, physical exam as noted above. Please refer to image. Concern for fracture and subungual hematoma vs dislocation. Low suspicion for osteomyelitis, cellulitis Plan: Nail trephination, x-ray Please refer to course for remaining clinical decision making, interpretation of labs/imaging results, and discussions with consultants and/or family members. Differential Diagnosis Differential Diagnoses: The differential diagnosis associated with the presentation includes As above Independent Interpretation I performed an independent interpretation of an: Plain X-Ray Radiology Impression Discussion of test interpretation with radiology: I have reviewed the radiologist's reading. External Record Review External record reviewed: Inpatient record, Office record, Outpatient record, Prior outpatient labs, Prior outpatient radiology, Primary care record and Outside ED record Tests considered The following testing was considered but not selected: As above Prescription Management I considered prescription management with: Pain Medication and Antibiotic Chronic Conditions Patient?s care impacted by: Diabetes and Hypertension Procedures Nail Trephination Location (finger): left and thumb Sterile prep: other (Alcohol swab) Method of drainage: nail cautery Procedure successful: Yes Patient tolerated procedure: No Complications Orthopedic Splinting/Casting Injury #1: Side: left Upper Extremity Injury Location: finger (Thumb) Upper Extremity Immobilizer: finger (other) Discharge Plan Discharge Clinical Impression: Subungual hematoma of finger of left hand, Fracture of distal phalanx of finger Patient Disposition: Home, Self-Care Instructions: Subungual Hematoma (ED), Finger Fracture (ED) Additional Instructions: Your x-ray shows osteoarthritis as well as a fracture of the osteophyte of your finger tip. It is unclear if this is old or new. We are treating this as a new break, please wear finger splint until you see the informatics nurse specialist. PLEASE FOLLOW-UP WITH ORTHOPEDICS. CALL TODAY TO MAKE AN APPOINTMENT There is also subluxation/partial dislocation of your thumb however this is likely chronic The blood was drained from your nail. Practice warm soaks at home Take Tylenol and Motrin for pain If area begins to look infected, as read, there is pus drainage or you have fever, or unbearable pain return to the ED Prescriptions: No Action cyclobenzaprine 5 mg tablet 5 mg PO Q8H PRN (Reason: pain (scale score 7-10)) 5 Days Qty: 14 0RF lidocaine [Lidoderm] 5 % adhesive patch,medicated 1 patch topical DAILY MDD remove after 12 hours PRN (Reason: pain) Qty: 30 0RF Rx Instructions: leave on most painful area for up to 12 hrs naproxen 500 mg tablet 500 mg PO BID PRN (Reason: pain) 10 Days Qty: 20 0RF acetaminophen [Tylenol Extra Strength] 500 mg tablet 500 mg PO Q6H PRN (Reason: pain or fever) Qty: 20 0RF cyclobenzaprine 10 mg tablet 5 mg PO TID PRN (Reason: muscle spasm) Qty: 20 0RF naproxen 500 mg tablet 500 mg PO BID PRN (Reason: pain) Qty: 14 0RF cyclobenzaprine 5 mg tablet 5 mg PO Q8H PRN (Reason: pain (scale score 7-10)) 5 Days Qty: 14 0RF lidocaine [Lidoderm] 5 % adhesive patch,medicated 1 patch topical DAILY MDD remove after 12 hours PRN (Reason: pain) Qty: 30 0RF Rx Instructions: leave on most painful area for up to 12 hrs acetaminophen [Tylenol Extra Strength] 500 mg tablet 500 mg PO Q6H PRN (Reason: pain or fever) Qty: 20 0RF naproxen 500 mg tablet 500 mg PO BID PRN (Reason: pain) 10 Days Qty: 20 0RF Referrals: Farideh Shah MD [Physician] - 1 week Interventions: ED Discharge Assessment Last Done: 04/04/24 10:33 Discharge Date/Time: 04/04/24 10:35 Print Language: Czech
[2024-04-04 10:33] VITALS: BP 130/84; PULSE 72; RESP 16; TEMP 36.2; O2SAT 95
== END 2024-04-04 10:35 | disposition home or self-care (01) ==
PROVIDERS: Emergency Provider Emergency Medicine Emergency Medical Services
DX: S60.112A Contusion of left thumb with damage to nail, initial encounter (principal); W22.8XXA Striking against or struck by other objects, initial encounter; Y93.9 Activity, unspecified; Y92.9 Unspecified place or not applicable; Y99.9 Unspecified external cause status
CPT/HCPCS: 11740; 29130; 73140; 99282; 99283

== ENCOUNTER 2024-04-10 13:13 | Outpatient (REF) | payer OTHER, SELFPAY ==
--- NOTE | ~2024-04-10 | US_ITS ---
EXAMINATION: US VENOUS ULTRASOUND WITH DOPPLER LOWER EXTREMITY, RIGHT CLINICAL INFORMATION: Right leg pain COMPARISON: None available. TECHNIQUE: Ultrasound of the deep veins is performed from the hip to the calf with compression sonography and color and pulse Doppler assessment. Spectral analysis with color-flow imaging is performed. FINDINGS: There is normal venous compression and respiratory variation. The visualized common femoral vein, superficial femoral vein, profunda femoral vein, popliteal vein, and the posterior tibial and peroneal veins show all no evidence of deep venous thrombosis. The contralateral common femoral vein demonstrates normal respiratory variation. Ultrasound of the lateral mid calf in the area of pain indicated by the patient demonstrates no focal sonographic abnormality. US/US venous duplex LE RT IMPRESSION: No DVT demonstrated in the right lower extremity.
--- NOTE | ~2024-04-10 | XR_ITS ---
EXAMINATION: XR ANKLE, RIGHT CLINICAL INFORMATION: Right lower leg pain. COMPARISON: October 31, 2018 TECHNIQUE: AP, lateral, and mortise views of the right ankle. FINDINGS: Redemonstration of old fracture deformity of the imaged distal shaft of the right tibia. Irregularity with corticated ossicle along the inferior aspect of the lateral malleolus redemonstrated. Small dorsal and plantar calcaneal spurs. Spurring along the proximal base of the fifth metatarsal. XR/XR ankle RT min 3V IMPRESSION: 1. Redemonstration of old fracture deformity of the imaged distal shaft of the right tibia. 2. Irregularity with corticated ossicle along the inferior aspect of the lateral malleolus redemonstrated. 3. Small dorsal and plantar calcaneal spurs.
== END 2024-04-10 13:14 | disposition home or self-care (01) ==
LOC: HO.US 13:13
PROVIDERS: PCP Family Medicine; Visit Provider Family Medicine
DX: M79.604 Pain in right leg (principal)
CPT/HCPCS: 73610; 93971

== ENCOUNTER 2024-04-25 09:58 | Outpatient (REF) | payer OTHER, SELFPAY | END 2024-04-25 09:59 | disposition home or self-care (01) | LOC: HO.HOSX 09:58 | PROVIDERS: Visit Provider Orthopaedic Surgery | DX: Z13.89 Encounter for screening for other disorder (principal) ==

== ENCOUNTER 2024-11-29 08:39 | Outpatient (REF) | payer OTHER, SELFPAY ==
--- OUTSIDE RECORDS SUMMARY | 2024-11-29 08:56 | XMS_ITS | Encounter Summary ---
Author Organization [employer] Address [address] [facility] [address] [place] [address] Care Team Providers Care Interior Assemblies Installer Name Role Phone Antonella Burnham MD Primary Care Provider Negro Whitfield PharmD Unavailable [phone] Encounter Details Date Type Department Care Team (Late st Contact Info) Description 07/25/2024 Abstract [facility] [address], [place] [phone] Felicita Barrett MA Social History Tobacco Use Types Packs/Day Years Used Date Smoking Tobacco: Never Passive Smoke Exposure: Never Smokeless Tobacco: Never Alcohol Answer Date Recorded Frequency of Alcohol Consumption Not on file 04/10/2024 Average Number of Drinks Not on file 024 Frequency of Binge Drinking Not on file 03/24 Score 0 04/10/2024 Depression Answer Date Recorded Patient Health Questionnaire-9 Score 11 07/18/2024 Patient Health Questionnaire-9 Score 11 07/18/2024 Last PHQ-9: Questionnaire Data Not on file 0 07/18/2024 Housing Stability Answer Date Recorded What is your housing situation today? I have tim jones 07/18/[address] you li ve. Do you have problems with any of the following? None of the above 07/18/2024 Food Insecurity Answer Date Recorded Within the past 12 months, y ou worried that your food would run out before you got money to buy more: Never True 07/18/2024 Within the past 12 months,th e food you bought just didn't last and you didn't have enough money to get more: Never True Transportation Answer Date Recorded In the past 12 months, has l ack of transportation kept you from medical appts, meetings, work or from getting things needed for daily living? No 07/18/2024 Utilities Answer Date Recorded In the past 12 months, has t he electric, gas, oil or water company threatened to shut off services in your home? No 07/18/2024 Depression Answer Date Recorded Patient Health Questionnaire-2 Score 6 07/18/2024 Internet Access Answer Date Recorded Internet Access Q1 Yes 07/18/2024 Internet Access Q2 Not on file 07/18/2024 Sex and Gender Information Value Date Recorded Sex Assigned at Male 08/23/2022 10:16 AM EDT Legal Sex Male 10:16 AM EDT Gender Identity Male 08/23/2022 10:16 AM EDT Sexual Orientation Straight 08/23/2022 10 :16 AM EDT documented as of this encounter Plan of Treatment Upcoming Encounters Date Type Department Care Team (Late st Contact Info) Description 12/27/2024 9:30 AM EST Medication Management [address] [address] Negro Whitfield PharmD [address] [place] [id number] 01/04/2025 11:30 AM EDT Clinical Support [address] [address] Sulma Alvarado, RN [address] [place] [address] documented as of this encounter Goals Goal Patient Goal Type Associated Problems Recent Progress Patient-Stated? Author Blood Pressure < 140/90 Blood Pressure 128/68(2024 10:10 AM EST) No Negro Whitfield, PharmRoberta Hemoglobin A1c < 7 Result Component 11.3(10/29/19 1:15 PM EST) No Negro Whitfield PharmD documented as of this encounter Procedures Procedure Name Priority Date/Time Associated Diagnosis Comments DIABETES EYE EXAM Routine 06/01/2024 documented in this encounter Results * Diabetes Eye Exam (06/01/2024) Eye Exam Normal Normal 06/01/2024 us Historical Provider HEALTH MAINTENANCE Final Result documented in this encounter Visit Diagnoses Not on filedocumented in this encounter Additional Health Concerns Assessment Noted Time PHQ-9 Depression Total Score: 11 07/18/ 024 10:18 AM EDT documented as of this encounter Care Teams Interior Assemblies Installer Relationship Specialty Start Date End Date Antonella Burnham MD [address] [place] [address] PCP - General Family Medicine 10/24/18 Negro Whitfield, Shyla [address] [place] [address] Pharmacist Internal Medicine 01/20/24 documented as of this encounter
--- OUTSIDE RECORDS SUMMARY | 2024-11-29 08:56 | XMS_ITS | Encounter Summary ---
Author Organization [employer] Address [address] [facility] [address] [place] [address] Care Team Providers Care Kiln Cleaner Name Role Phone Antonella Burnham MD Primary Care Provider [phone] Negro Whitfield PharmD Unavailable [phone] Encounter Details Date Type Department Care Team ([facility] st Contact Info) Description 11/19/2024 Telephone [facility] [address] [place], [place] [phone] Sulma Alvarado, GISELE [address] [place] [address] Social History Tobacco Use Types Packs/Day Years [...] your housing situation today? I have tim karen 07/18/[address] you li [...] AM EDT documented as of this encounter Miscellaneous Notes * Telephone Encounter - Sulma Alvarado RN - 11/19/2024 1:04 PM EST TC to pt via S ID# [id number]. [employer] [place] scheduled for 01/04/25 @ 11:30am at [facility]. documented in this encounter Plan of Treatment Upcoming Encounters Date Type Department Care Team (Late st Contact Info) Description 12/27/2024 9:30 AM EST Medication Management [facility] [address] [place] [phone] Negro Whitfield, PharmD [address] [place] [address] 01/04/2025 11:30 AM EDT Clinical Support [facility] [address] [place] [phone] Sulma Alvarado RN [address] [place] [address] documented as of this encounter Goals Goal Patient Goal Type Associated Problems Recent Progress Patient-Stated? Author Blood Pressure < 140/90 Blood Pressure 128/68(2024 10:10 AM EST) No Negro Whitfield PharmD Hemoglobin A1c < 7 Result Component 11.3(10/29/19 25 1:15 PM EST) No Negro Whitfield PharmD documented as of this encounter Visit Diagnoses Not on filedocumented in this encounter Additional Health Concerns Assessment Noted Time PHQ-9 Depression Total Score: 11 024 10:18 AM EDT documented as of this encounter Care Teams Kiln Cleaner Relationship Specialty Start Date End Date Antonella Burnham MD [address] [place] [address] PCP - General Family Medicine 10/24/18 Negro Whitfield PharmD [address] [place] [phone] Pharmacist Internal Medicine 01/20/24 documented as of this encounter
--- OUTSIDE RECORDS SUMMARY | 2024-11-29 08:56 | XMS_ITS | Clinical Summary ---
Author Organization [employer] Address [address] [place] [address] [address] [place] [address] Care Team Providers Care Precision Optics Technician Name Role Phone Antonella Burnham MD Primary Care Provider [phone] Negro Whitfield PharmD Unavailable [phone] Allergies No known active allergies Medications * This document contains information received from the source organization and may not represent a complete record from that organization. naloxone (Narcan) 4 mg/0.1 mL nasal spray FOR SUSPECTED OPIOID OVERDOSE. SPRAY 0.1mL IN ONE NOSTRIL. REPEAT IN ALTERNATE NOSTRIL 2-3 MINUTES IF NEEDED. SEEK MEDICAL ATTENTION IMMEDIATELY EVEN IF PATIENT RESPONDS. 022 Active Aspirin Adult Low Strength 81 MG EC tablet TAKE 1 TABLET BY MOUTH EVERY DAY 90 tablet 1 023 Active ipratropium (Atrovent) 0.06 % nasal spray SPRAY 2 SPRAYS IN EACH NOSTRIL FOUR TIMES DAILY 15 mL 3 024 Active montelukast (Singulair) 10 MG tablet Take 1 tablet (10 mg) by mouth at bedtime. 90 tablet 3 024 Active fexofenadine (Liz) 60 MG tablet Take 1 tablet (60 mg) by mouth 2 times daily. 180 tablet 3 024 Active metFORMIN XR (Glucophage-XR ) 500 MG 24 hr tablet TAKE 2 TABLETS BY MOUTH TWICE DAILY 360 tablet 3 024 Active omeprazole (PriLOSEC) [address] capsuleIndicat ions:Gastroeso phageal reflux disease, unspecified whether esophagitis present TAKE 1 CAPSULE BY MOUTH DAILY BEFORE A MEAL 30 capsule 5 024 Active glucose blood (FREESTYLE LITE) test stripIndicatio ns:Type 2 diabetes mellitus with hyperglycemia, without long-term current use of insulin ([facility]) Use to test blood sugar 2 times daily 100 each 024 2024 Active Lancets miscIndication s:Type 2 diabetes mellitus with hyperglycemia, without long-term current use of insulin ([facility]) Use to test blood sugar 2 times daily 100 each Active Blood Glucose Monitoring Suppl (FreeStyle [place] Lite) w/Device kitIndications :Type 2 diabetes mellitus with hyperglycemia, without long-term current use of insulin ([facility]) Use to test blood sugar 2 times daily 1 kit Active Alcohol Swabs 70 % padsIndication s:Type 2 diabetes mellitus with hyperglycemia, without long-term current use of insulin ([facility]) Use to test blood sugar 2 times daily 100 each Active Oyster Shell Calcium 500 MG tabletIndicati ons:Vitamin deficiency TAKE 1 TABLET BY MOUTH TWICE DAILY 180 tablet 3 Active atorvastatin (Lipitor) 40 MG tablet TAKE 1 TABLET BY MOUTH EVERY DAY AT BEDTIME 90 tablet 3 Active lisinopril 10 MG tablet TAKE 1 TABLET BY MOUTH EVERY DAY IN THE MORNING 90 tablet 3 Active traZODone (Desyrel) 100 MG tablet Take 1 tablet (100 mg) by mouth at bedtime. TAKE 1 TABLET BY MOUTH AT BEDTIME AFTER MEALS 90 tablet Active Trulicity 4.5 MG/0.5ML solution auto-injectorI ndications:Typ e 2 diabetes mellitus with hyperglycemia, without long-term current use of insulin ([facility]) INJECT ONE PEN (= 4.5MG) SUBCUTANEOUSLY ONCE A WEEK DIRECTED 2 mL 3 Active dapagliflozin (Farxiga) 5 MG Take 1 tablet (5 mg) by mouth Once per day. 90 tablet 3 025 2025 Active citalopram (CeleXA) 20 MG tablet Take 1 tablet (20 mg) by mouth Once per day. 90 tablet 3 Active traMADol (Ultram) 50 MG tabletIndicati ons:Right leg pain,Chronic bilateral low back pain, unspecified whether sciatica present Take 1 tablet (50 mg) by mouth if needed each day for severe pain. 28 tablet 025 Active traMADol (Ultram) 50 MG tabletIndicati ons:Right leg pain,Chronic bilateral low back pain, unspecified whether sciatica present Take 1 tablet (50 mg) by mouth if needed at bedtime for severe pain. 28 tablet 025 2024 Discontinued traMADol (Ultram) 50 MG tabletIndicati ons:Right leg pain,Chronic bilateral low back pain, unspecified whether sciatica present TAKE 1 TABLET BY MOUTH AT BEDTIME NEEDED FOR SEVERE PAIN 28 tablet 025 2024 Discontinued(R eorder (will not trigger notification to Pharmacy)) Active Problems Problem Noted Date Diagnosed Date Mood disorder 07/18/2024 Assessment & Plan (11/04/2024 10:21 AM EST): - likely MDD Assessment & Plan (07/18/2024 4:15 PM EDT): - likely MDD Right leg pain 04/10/2024 Assessment & Plan (11/04/2024 10:20 AM EST): -history of injury many years ago -US negative for DVT in March 2024 -XR in March 2024 showed old fracture, referred to orthopedist, patient requests another referral to a different orthopedist, will make the referral -discussed possibility for diabetic neuropathy -discussed about short-term disability placard, if appropriate -discussed about our LINUX DEVOPS ENGINEER procedure; advised to reschedule appointment with LINUX DEVOPS ENGINEER drafter castings & Plan (07/18/2024 4:13 PM EDT): -history of injury many years ago -US negative for DVT in March 2024 -XR in March 2024 showed old fracture, referred to orthopedist, patient requests another referral to a different orthopedist, will make the referral -discussed possibility for diabetic neuropathy -discussed about short-term disability placard, if appropriate -advised not to misuse non-prescribed opioid -patient agreed to see a specialist Assessment & Plan (04/11/2024 11:11 AM EDT): -no known injury -will evaluate with XR to r/o FX and US to r/o DVT, although it is less likely to find anything significant -discussed possibility for diabetic neuropathy -discussed about short-term disability placard, if appropriate -advised not to misuse non-prescribed opioid -patient agreed to see a specialist Skin lesion 01/16/2024 Assessment & Plan (01/16/2024 11:51 AM EDT): - on forehead and near eyes - cryotherapy done on the lesion on forehead - recommended to speak with dot etcher for lesions near his eyes Sensorineural hearing loss (SNHL) of both ears 0 10/27/2022 Assessment & Plan (05/13/2023 6:09 AM EDT): -Will try to speak in low-pitch sounds -Encouraged to pickle solution maker hearing aids Assessment & Plan (04/02/2023 6:34 AM EDT): -Will try to speak in low-pitch sounds -Encouraged to pickle solution maker hearing aids Assessment & Plan (10/27/2022 12:40 PM EST): -Will try to speak in low-pitch sounds -Hearing aids Dyslipidemia 09/06/2016 Assessment & Plan (11/04/2024 10:21 AM EST): -Last lipid profile: 12/29/23 -Current medication: Atorvastatin 40 mg qhs -He is on high-intensity statin therapy per guideline. LDL is > 70. Consider increasing it to 80 mg at bedtime. -Continue working on lifestyle modification. -Check lipid profile at least once a year with LFT. Assessment & Plan (07/18/2024 10:18 AM EDT): -Last lipid profile: 12/29/23 -Current medication: Atorvastatin 40 mg qhs -He is on high-intensity statin therapy per guideline. LDL is > 70. Consider increasing it to 80 mg at bedtime. -Continue working on lifestyle modification. -Check lipid profile at least once a year with LFT. Assessment & Plan (04/10/2024 8:55 AM EDT): -Last lipid profile: 12/29/23 -Current medication: Atorvastatin 40 mg qhs -He is on high-intensity statin therapy per guideline. LDL is > 70. Consider increasing it to 80 mg at bedtime. -Continue working on lifestyle modification. -Check lipid profile at least once a year with LFT. Assessment & Plan (01/16/2024 12:16 PM EDT): -Last lipid profile: 12/29/23 -Current medication: Atorvastatin 40 mg qhs -He is on high-intensity statin therapy per guideline. LDL is > 70. Consider increasing it to 80 mg at bedtime. -Continue working on lifestyle modification. -Check lipid profile at least once a year with LFT. Assessment & Plan (10/06/2023 6:39 AM EST): -Last lipid profile: 10/28/22 TC 156; TG 70; HDL 41; LDL 99 -Current medication: Atorvastatin 40 mg qhs -He is on high-intensity statin therapy per guideline. -Continue working on lifestyle modification. -Check lipid profile at least once a year with LFT. Assessment & Plan (07/19/2023 1:55 PM EDT): -Last lipid profile: 10/28/22 TC 156; TG 70; HDL 41; LDL 99 -Current medication: Atorvastatin 40 mg qhs -He is on high-intensity statin therapy per guideline. -Continue working on lifestyle modification. -Check lipid profile at least once a year with LFT. Assessment & Plan (05/12/2023 5:13 AM EDT): -Last lipid profile: 10/28/22 TC 156; TG 70; HDL 41; LDL 99 -Current medication: Atorvastatin 40 mg qhs -He is on high-intensity statin therapy per guideline. -Continue working on lifestyle modification. -Check lipid profile at least once a year with LFT. Assessment & Plan (04/02/2023 6:34 AM EDT): -Last lipid profile: 10/28/22 TC 156; TG 70; HDL 41; LDL 99 -Current medication: Atorvastatin 40 mg qhs -He is on high-intensity statin therapy per guideline. -Continue working on lifestyle modification. -Check lipid profile at least once a year with LFT. Assessment & Plan (10/27/2022 12:38 PM EST): -Last lipid profile: 08/20/21 TC 162; TG 109; HDL 46; LDL 95 -Current medication: Atorvastatin 40 mg qhs -He is on high-intensity statin therapy per guideline. -Continue working on lifestyle modification. -Check lipid profile at least once a year with LFT. Chronic depression 12/01/2015 Assessment & Plan (11/04/2024 10:23 AM EST): -PHQ9 score 11, GAD7 score 6 in Jun 2024 -Continue trazodone 100 mg at bedtime -Decrease citalopram to 20 mg daily --Caution with potential interaction between tramadol and citalopram Assessment & Plan (07/18/2024 4:16 PM EDT): -PHQ9 score 11, GAD7 score 6 -Continue trazodone 100 mg at bedtime -Continue citalopram 40 mg daily --Caution with potential interaction between tramadol and citalopram Assessment & Plan (01/13/2024 6:09 PM EDT): -Improved and stable today, likely because he now has stable housing -Continue trazodone 100 mg at bedtime -Continue citalopram 40 mg daily --Caution with potential interaction between tramadol and citalopram Assessment & Plan (10/06/2023 6:40 AM EST): -Improved and stable today, likely because he now has stable housing -Continue trazodone 100 mg at bedtime -Continue citalopram 40 mg daily --Caution with potential interaction between tramadol and citalopram Assessment & Plan (07/19/2023 1:48 PM EDT): -Improved and stable today, likely because he now has stable housing -Continue trazodone 100 mg at bedtime -Continue citalopram 40 mg daily --Caution with potential interaction between tramadol and citalopram Assessment & Plan (05/13/2023 6:10 AM EDT): -Improved and stable today, likely because he now has stable housing -Continue trazodone 100 mg at bedtime -Continue citalopram 40 mg daily --Caution with potential interaction between tramadol and citalopram Assessment & Plan (04/02/2023 6:33 AM EDT): -Recurrence, worsening symptoms lately -Continue trazodone 100 mg at bedtime -Continue citalopram 40 mg daily -[facility] to help with social issues (housing) and behavioral health care. --Caution with potential interaction between tramadol and citalopram Assessment & Plan (10/27/2022 12:42 PM EST): -Continue trazodone 100 mg at bedtime -Continue citalopram 40 mg daily --Caution with potential interaction between tramadol and citalopram Essential hypertension 08/26/2015 Assessment & Plan (07/18/2024 10:43 AM EDT): -Goal BP < 140/90 per JNC-8, < 130/80 per ACC/AHA guideline -BP elevated today -previously on lisinopril 30 mg daily, but discontinued after MTM consult, normal BP and non-adherence, then restarted at lower dose in Jul 2020 -Continue Lisinopril 10mg daily. -Discussed about the importance of lifestyle modification and medication adherence. -Continue checking home BP -follow up in 3-6 months or sooner if any problem arises Assessment & Plan (04/10/2024 11:12 AM EDT): -Goal BP < 140/90 per JNC-8, < 130/80 per ACC/AHA guideline -BP slightly elevated 150/100 - 04/10/24 -previously on lisinopril 30 mg daily, but discontinued after MTM consult, normal BP and non-adherence, then restarted at lower dose in Jul 2010 -Continue Lisinopril 10mg daily. -Discussed about the importance of lifestyle modification and medication adherence. -Continue checking home BP -follow up in 3-6 months or sooner if any problem arises Assessment & Plan (01/13/2024 6:07 PM EDT): -Goal BP < 140/90 per JNC-8, < 130/80 per ACC/AHA guideline -previously on lisinopril 30 mg daily, but discontinued after MTM consult, normal BP and non-adherence, then restarted at lower dose in Jul 2010 -Continue Lisinopril 10mg daily. -Discussed about the importance of lifestyle modification and medication adherence. -Continue checking home BP -follow up in 3-6 months or sooner if any problem arises Assessment & Plan (10/06/2023 6:39 AM EST): -Goal BP < 140/90 per JNC-8, < 130/80 per ACC/AHA guideline -previously on lisinopril 30 mg daily, but discontinued after MTM consult, normal BP and non-adherence, then restarted at lower dose in Jul 2010 -Continue Lisinopril 10mg daily. -Discussed about the importance of lifestyle modification and medication adherence. -Continue checking home BP -follow up in 3-6 months or sooner if any problem arises Assessment & Plan (07/19/2023 1:55 PM EDT): -Goal BP < 140/90 per JNC-8, < 130/80 per ACC/AHA guideline -previously on lisinopril 30 mg daily, but discontinued after MTM consult, normal BP and non-adherence, then restarted at lower dose in Jul 2010 -Continue Lisinopril 10mg daily. -Discussed about the importance of lifestyle modification and medication adherence. -Continue checking home BP -follow up in 3-6 months or sooner if any problem arises Assessment & Plan (05/13/2023 6:04 AM EDT): -Goal BP < 140/90 per JNC-8, < 130/80 per ACC/AHA guideline -previously on lisinopril 30 mg daily, but discontinued after MTM consult, normal BP and non-adherence, then restarted at lower dose in Jul 2010 -Continue Lisinopril 10mg daily. -Discussed about the importance of lifestyle modification and medication adherence. -Continue checking home BP -follow up in 3-6 months or sooner if any problem arises Assessment & Plan (04/02/2023 6:27 AM EDT): -Goal BP < 140/90 per JNC-8, < 130/80 per ACC/AHA guideline -previously on lisinopril 30 mg daily, but discontinued after MTM consult, normal BP and non-adherence, then restarted at lower dose in Jul 2010 -Continue Lisinopril 10mg daily. -Discussed about the importance of lifestyle modification and medication adherence. -Continue checking home BP -follow up in 3 months or sooner if any problem arises Assessment & Plan (10/27/2022 12:34 PM EST): -Goal BP < 140/90 per JNC-8, < 130/80 per ACC/AHA guideline -previously on lisinopril 30 mg daily, but discontinued after MTM consult, normal BP and non-adherence, then restarted at lower dose in Jul 2010 -Continue Lisinopril 10mg daily. -Discussed about the importance of lifestyle modification and medication adherence. -Continue checking home BP -follow up in 3 months or sooner if any problem arises Type 2 diabetes mellitus 08/30/2012 Assessment & Plan (10/29/2024 1:51 PM EST): -Dx November 2009 -Hgb A1C 11.3% on 10/29/2024, rising -Co-managed with our pharmacist, CDTM. -Continue working on lifestyle modifications -Continue monitoring glucose. Current device - Hire Spacestyle Lite. CGM was not approved -Continue metformin XR 1000 mg bid -Continue dulaglutide (Trulicity) 4.5 mg weekly -Add Farxiga 5 mg -Since he has recently started higher dose of dulaglutide, will not start dapagliflozin (Farxiga) at this time. Will reassess at next CDTM or PCP visit. -Treatment Hx: --Tried Jardiance 2018, which was discontinued in 2021 due to pt's intolerance. --Started on Trulicity in March 2023 and discontinued glipizide; -Microalbumin test: 12/29/23 UACR 23.9 -Lipid profile: 12/29/23 -Diabetic eye exam: No retinopathy. Patient reports exam in May 2024 -Foot exam: December 2023. Decreased sensation. - Follow up in 3 mo or sooner prn Assessment & Plan (07/18/2024 4:11 PM EDT): -Dx November 2009 -Hgb A1C 8.2% on 07/18/24, improving -Co-managed with our pharmacist, CDTM. -Continue working on lifestyle modifications -Continue monitoring glucose. Current device - Freestyle Lite. CGM was not approved -Continue metformin XR 1000 mg bid -Continue dulaglutide (Trulicity) 4.5 mg weekly -Since he has recently started higher dose of dulaglutide, will not start dapagliflozin (Farxiga) at this time. Will reassess at next CDTM or PCP visit. -Treatment Hx: --Tried Jardiance 2018, which was discontinued in 2021 due to pt's intolerance. --Started on Trulicity in March 2023 and discontinued glipizide; -Microalbumin test: 12/29/23 UACR 23.9 -Lipid profile: 12/29/23 -Diabetic eye exam: No retinopathy. Patient reports exam in May 2024 -Foot exam: December 2023. Decreased sensation. - Follow up in 3 mo or sooner prn Assessment & Plan (04/10/2024 11:28 AM EDT): -Dx November 2009 -Hgb A1C 10.4%, worsened from 8.2% on 01/16/24 -Co-managed with our pharmacist, CDTM. -Continue working on lifestyle modifications -Continue monitoring glucose. Current device - Freestyle Lite. Will send CGM because pt is having hypoglycemia and is on Trulicity -Continue metformin XR 1000 mg bid -Currently on 1.5 mg Trulicity due to back order, but will continue on 3.0 mg -Treatment Hx: --Tried Jardiance 2019, which was discontinued due to pt's intolerance. --Started on Trulicity in March 2023 and discontinued glipizide; -Microalbumin test: 12/29/23 UACR 23.9 -Lipid profile: 12/29/23 -Diabetic eye exam: No retinopathy. Next appt in May 2024 -Foot exam: December 2023. Decreased sensation. - Follow up in 3 mo or sooner prn Assessment & Plan (01/16/2024 12:15 PM EDT): -Dx November 2009 -Hgb A1C 8.2% on 01/16/24, improved from 9.9% on 10/06/23 -Co-managed with our pharmacist, MAURICE. -Continue working on lifestyle modifications -Continue monitoring glucose. Current device - Freestyle Lite. Will send CGM because pt is having hypoglycemia and is on Trulicity -Continue metformin XR 1000 mg bid -Increase dulaglutide to 3.0 mg weekly -Treatment Hx: --Tried Jardiance 2018, which was discontinued due to pt's intolerance. --Started on Trulicity in March 2023 and discontinued glipizide; -Microalbumin test: 12/29/23 UACR 23.9 -Lipid profile: 12/29/23 -Diabetic eye exam: No retinopathy. Next appt in May 2024 -Foot exam: December 2023. Decreased sensation. - Follow up in 3 mo or sooner prn Assessment & Plan (10/14/2023 1:36 PM EST): -Dx November 2009 -Hgb A1C 9.9% on 10/06/23, worsened again. 8.4% on 07/19/23, improving from 9.8% on 03/29/23 -Continue working on lifestyle modifications -Continue monitoring glucose. Current device - Freestyle Lite. Will send CGM because pt is having hypoglycemia and is on Trulicity -Continue metformin XR 1000 mg bid -Increase dulaglutide to 1.5 mg weekly -Treatment Hx: --Tried Jardiance 2018, which was discontinued due to pt's intolerance. --Started on Trulicity in March 2023 and discontinued glipizide; referred to CDTM in March 2023, pt missed appts -Microalbumin test: 05/12/23 UACR 7.0 -Lipid profile: 10/28/22 TC 156; TG 70; HDL 41; LDL 99 -Diabetic eye exam: No retinopathy. Next appt in Nov 2023 -Foot exam: Jun 2022 Decreased sensation. - Follow up in 3 mo or sooner prn Assessment & Plan (07/25/2023 4:48 AM EDT): -Dx November 2009 -Hgb A1C 8.4% on 07/19/23, improving from 9.8% on 03/29/23 ; with hypoglycemic episodes -Continue working on lifestyle modifications -Continue monitoring glucose. Current device - Freestyle Lite. Will send CGM because pt is having hypoglycemia and is on Trulicity -Continue metformin XR 1000 mg bid -Continue Trulicity 0.75 mg weekly -Treatment Hx: --Tried Jardiance 2018, which was discontinued due to pt's intolerance. --Started on Trulicity in March 2023 and discontinued glipizide; referred to CDTM in March 2023 (has not had an appt yet due to pt has not responded the call) -Microalbumin test: 05/12/23 UACR 7.0 -Lipid profile: 10/28/22 TC 156; TG 70; HDL 41; LDL 99 -Diabetic eye exam: No retinopathy. Appt in January 2023 -Foot exam: Jun 2022 Decreased sensation. - Follow up in 3 mo or sooner prn Assessment & Plan (05/13/2023 6:09 AM EDT): -Dx November 2009 -Hgb A1C 9.8% on 03/29/23 worsening despite increasing glipizide. -Improving -Continue working on lifestyle modifications -Continue monitoring glucose. Current device - he lost one, new glucometer Freestyle Lite sent. -Continue metformin XR 1000 mg bid -Continue Trulicity 0.75 mg weekly, and titrate up as needed -Treatment Hx: --Tried Jardiance 2018, which was discontinued due to pt's intolerance. --Started on Trulicity in March 2023 and discontinued glipizide; referred to CDTM in March 2023 (has not had an appt yet due to pt has not responded the call) -Microalbumin test: 08/20/21 No microalbuminuria ; sending it today -Lipid profile: 10/28/22 TC 156; TG 70; HDL 41; LDL 99 -Diabetic eye exam: No retinopathy. Appt in January 2023 -Foot exam: Jun 2022 Decreased sensation. - Follow up in 3 mo or sooner prn Assessment & Plan (04/02/2023 6:32 AM EDT): -Dx November 2009 -Hgb A1C 9.8%, continues to worsen despite increasing glipizide. 8.6% in October 2022 -Continue working on lifestyle modifications -Continue monitoring glucose. Current device - he lost one, new glucometer Freestyle Lite sent. -Continue metformin XR 1000 mg bid -Start Trulicity 0.75 mg weekly, and titrate up -Discontinue glipizide -Treatment Hx: Tried Jardiance 2018, which was discontinued due to pt's intolerance. -Microalbumin test: 08/20/21 No microalbuminuria -Lipid profile: 08/20/21 -Diabetic eye exam: No retinopathy. Next appt in January 2023 -Foot exam: Jun 2022 Decreased sensation. - Follow up in 3 mo or sooner prn - refer to CDTM Assessment & Plan (10/27/2022 12:31 PM EST): -Dx November 2009 -Hgb A1C 8.6%, improved from 9.8% in Jun 2022, but still not at goal -Continue working on lifestyle modifications -Continue checking BG -Continue metformin XR 1000 mg bid -Increase glipizide 5 mg with breakfast and 10 mg with afternoon meal -Treatment Hx: Tried Jardiance 2018, which was discontinued due to pt's intolerance. -Microalbumin test: 08/20/21 No microalbuminuria -Lipid profile: 08/20/21 -Diabetic eye exam: No retinopathy. Next appt in January 2023 -Foot exam: Jun 2022 Decreased sensation. Allergic rhinitis 07/04/2012 Assessment & Plan (04/10/2024 8:54 AM EDT): -Pt has been following with ENT -Pt states he is receiving immunotherapy every 2 weeks -Continue montelukast 10 mg at bedtime -Continue antihistamine, currently fexofenadine at high dose, 180 mg bid, prescribed by specialist -Continue ipratropium nasal spray Assessment & Plan (01/16/2024 12:18 PM EDT): -Pt has been following with ENT -Pt states he is receiving immunotherapy every 2 weeks -Continue montelukast 10 mg at bedtime -Continue antihistamine, currently fexofenadine at high dose, 180 mg bid, prescribed by specialist -Continue ipratropium nasal spray Assessment & Plan (10/14/2023 1:38 PM EST): -Pt states he is following with specialist (has not received any note) -Pt states he is receiving immunotherapy every 2 weeks -Continue montelukast 10 mg at bedtime -Continue antihistamine (either cetirizine or fexofenadine) prescribed by specialist -Add ipratropium nasal spray Assessment & Plan (10/27/2022 12:42 PM EST): -Continue montelukast 10 mg at bedtime -Continue fexofenadine 60 mg bid Chronic back pain 07/04/2012 Assessment & Plan (11/04/2024 10:24 AM EST): -Previously seen by sign painter, tried gabapentin, which was discontinued for unclear reason -Previously seen by [facility] provider. Dx DDD. Rx oxaprozin, PT. Discharged. -No longer following orthopedist or pain management -Ordered MRI in 2021, but he did not complete. Will order in the future when he develops concerning symptoms again. -Reviewed judicious and responsible use of tramadol -LINUX DEVOPS ENGINEER agreement reviewed; patient will reschedule appointment. -Patient is currently using cane for ambulation and is trying to get a disability placard. Assessment & Plan (07/18/2024 4:16 PM EDT): -Previously seen by sign painter, tried gabapentin, which was discontinued for unclear reason -Previously seen by [facility] and Sports provider. Dx DDD. Rx oxaprozin, PT. Discharged. -No longer following orthopedist or pain management -Ordered MRI in 2021, but he did not complete. Will order in the future when he develops concerning symptoms again. -Reviewed judicious and responsible use of tramadol -LINUX DEV[employer] ENGINEER agreement review and monitoring up to date -Patient is currently using cane for ambulation and is trying to get a disability placard. Assessment & Plan (04/10/2024 8:54 AM EDT): -Previously seen by sign painter, tried gabapentin, which was discontinued for unclear reason -Previously seen by [facility]. Dx DDD. Rx oxaprozin, PT. Discharged. -No longer following orthopedist or pain management -Ordered MRI in 2021, but he did not complete. Will order in the future when he develops concerning symptoms again. -Reviewed judicious and responsible use of tramadol -LINUX DEVOPS ENGINEER agreement review and monitoring up to date -Patient is currently using cane for ambulation and is trying to get a disability placard. Assessment & Plan (01/16/2024 12:21 PM EDT): -Previously seen by sign painter, tried gabapentin, which was discontinued for unclear reason -Previously seen by [facility] provider. Dx DDD. Rx oxaprozin, PT. Discharged. -No longer following orthopedist or pain management -Ordered MRI in 2021, but he did not complete. Will order in the future when he develops concerning symptoms again. -Reviewed judicious and responsible use of tramadol -LINUX DEVOPS ENGINEER agreement review and monitoring up to date -Patient is currently using cane for ambulation and is trying to get a disability placard. Assessment & Plan (10/06/2023 6:40 AM EST): -Previously seen by sign painter, tried gabapentin, which was discontinued for unclear reason -Previously seen by [facility] provider. Dx DDD. Rx oxaprozin, PT. Discharged. -No longer following orthopedist or pain management -Ordered MRI in 2021, but he did not complete. Will order in the future when he develops concerning symptoms again. -Reviewed judicious and responsible use of tramadol -[employer] DEV[employer] ENGINEER agreement review and monitoring up to date Assessment & Plan (07/25/2023 4:49 AM EDT): -Previously seen by sign painter, tried gabapentin, which was discontinued for unclear reason -Previously seen by [facility] provider. Dx DDD. Rx oxaprozin, PT. Discharged. -No longer following orthopedist or pain management -Ordered MRI in 2021, but he did not complete. Will order in the future when he develops concerning symptoms again. -Reviewed judicious and responsible use of tramadol -LINUX DEVOPS ENGINEER agreement review and monitoring up to date Assessment & Plan (05/13/2023 6:11 AM EDT): -Previously seen by sign painter, tried gabapentin, which was discontinued for unclear reason -Previously seen by [facility] provider. Dx DDD. Rx oxaprozin, PT. Discharged. -No longer following orthopedist or pain management -Evaluate with MRI -Reviewed judicious and responsible use of tramadol -[employer] DEV[employer] ENGINEER agreement review and monitoring up to date Assessment & Plan (04/02/2023 6:47 AM EDT): -Previously seen by sign painter, tried gabapentin, which was discontinued for unclear reason -Previously seen by [facility] provider. Dx DDD. Rx oxaprozin, PT. Discharged. -No longer following orthopedist or pain management -Evaluate with MRI -Reviewed judicious and responsible use of tramadol -LIN[employer] DEV[employer] ENGINEER agreement review and monitoring up to date Assessment & Plan (10/27/2022 12:41 PM EST): -Reviewed judicious and responsible use of tramadol -LINUX DEVOPS ENGINEER agreement review and monitoring up to date Gastroesophageal reflux disease 07/04/2012 Assessment & Plan (07/18/2024 10:17 AM EDT): -Hx Peptic ulcer disease -Continue omeprazole 40 mg daily Assessment & Plan (04/02/2023 6:27 AM EDT): -Hx Peptic ulcer disease -Continue omeprazole 40 mg daily Assessment & Plan (10/27/2022 12:46 PM EST): -Hx Peptic ulcer disease -Continue omeprazole 40 mg daily 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 Vitamin D deficiency 07/04/2012 Encounters Date Type Department Care Team Description 11/28/2024 Travel 11/26/2024 Refill [facility] [address] [place] [address] Sulma Alvarado, RN Right leg pain; Chronic bilateral low back pain, unspecified whether sciatica present 11/23/[address] [place] [address] Antonella Burnham MD Right leg pain; Chronic bilateral low back pain, unspecified whether sciatica present 11/22/[address] [address] Antonella Burnham MD Med Refill 11/19/2024 Telephone [facility] [address] [place] [address] Sulma Alvarado, GISELE 11/19/2024 Travel 11/16/[address] [address] Sulma Alvarado, RN telephone call 11/13/[address] [address] Sulma Alvarado, GISELE telephone call 11/07/2024 Telephone [facility] [address] [place] [address] Sulma Alvarado, GISELE 11/07/[address] [address] Antonella Burnham MD telephone call 10/31/[address] [address] Antonella Burnham MD 10/29/2024 1:15 PM EST Office Visit [address] [address] Antonella Burnham MD Chronic depression (Primary Dx); Type 2 diabetes mellitus with hyperglycemia, without long-term current use of insulin (CMS/HCC); Right leg pain; Chronic bilateral low back pain, unspecified whether sciatica present; Mood disorder (CMS/HCC); Dyslipidemia; Dietary counseling; Exercise counseling; Overweight 10/29/2024 Travel 10/26/[address] [address] Felicita Barrett MA chart prep 10/04/2024 Telephone [facility] [address] [place] [address] Felicita Barrett MA october recall 09/21/2024 Refill [facility] [address] [place] [address] Negro Whitfield, PharmD Type 2 diabetes mellitus with hyperglycemia, without long-term current use of insulin ([facility]) 09/10/2024 Telephone [facility] [address] [place], [place] [phone] Galilea Hanna, PharmD 09/10/2024 Refill [facility] [address], [place] [phone] Antonella Burnham MD 09/07/2024 Refill [facility] [address], [place] [phone] Antonella Burnham MD from Last 3 Months Immunizations Name Administration Dates Next Due Hep B, adult 12/18/2014,01/15/2014,10/04/2013 Influenza High-dose Quadriva lent Preservative Free 07/19/2022 Influenza injectable quadriv alent IIV4 with preservative 07/17/2018,11/10/2017,09/06/2016 Influenza injectable quadriv alent preservative free 07/19/2023,07/22/2021,08/14/2020,09/10 Influenza, High Dose Seasona l, Preservative Free 07/18/2024 Influenza, IIV3, injectable 09/17/2014, 1,08/26/2010 Influenza, Split (incl. bello fied surface antigen) 07/04/2012 Pneumococcal Conjugate PCV 20 07/19/2022 Pneumococcal Polysaccharide PPSV23 06/09/2009, RSV Bivalent 01/20/2024 TD (adult), 2 Lf tetanus tox oid, preservative free, adsorbed 06/07/2019,06/09/2009,10/24/1996 Tdap 06/07/2019,07/04/2012 Zoster, Recombinant 08/20/2020,06/18/2020 Zoster, live 04/13/2018 Family History Medical History Relation Name Comments Coronary artery disease Brother Diabetes type II Brother Throat cancer Brother Coronary artery disease Sister Diabetes type II Sister Hypertension Sister Relation Name Status Comments Brother Sister Social History Tobacco Use Types Packs/Day Years Used Date Smoking Tobacco: Never Passive Smoke Exposure: Never Smokeless Tobacco: Never Tobacco Cessation:Counseling Given: Not Answered Alcohol Answer Date Recorded Frequency of Alcohol [...] Orientation Straight 08/23/2022 10 :16 AM EDT Last Filed Vital Signs Vital Sign Reading Time Taken Comments Blood Pressure 128/68 11/28/2024 10:10 AM EST Pulse 76 11/28/2024 10:10 AM EST Temperature 36.2 ??C (97.1 ??F) 10/29/2024 1:27 PM ES T Respiratory Rate 19 10/29/2024 1:27 PM EST Oxygen Saturation 95% 10/29/2024 1:27 PM EST Inhaled Oxygen Concentration - - Weight 77.4 kg (170 lb 9.6 oz) 10/29/2024 1:27 P M EST Height 165.4 cm (5' 5.11 ) 04/10/2024 10:37 AM E DT Body Mass Index 28.29 04/10/2024 10:37 AM EDT Plan of Treatment Upcoming Encounters Date Type Department Care Team (Late st Contact Info) Description 12/27/2024 9:30 AM EST Medication Management [facility] [address] [place] [address] Negro Whitfield, PharmD [address] [place] [address] 01/04/2025 11:30 AM EDT Clinical Support [facility] [address] [place] [address] Sulma Alavrado, RN [address] [place], [place] [phone] Health Maintenance Due Date Last Done Comments CT Colonography 1956 FIT DNA/Cologuard 1956 FIT 1956 FOBT 1955 Sigmoidoscopy 1956 COVID-19 Vaccine ( season) 2024 03/21/2021, 02/21/2021 Diabetes: Urine Protein Screening 12/28/2024 12/29/2023, 05/12/2023, 08/20/2021, Additional history exists Lipid Panel 12/28/2024 12/29/2023, 02/2023, 08/20/2021 Depression Monitoring (PHQ-9) 01/15/2025 07/18/2024, 07/18/2024 Diabetes: Foot Exam 01/15/2025 01/16/2024, 01/16/2024, 01/16/2024, Additional history exists Diabetes: Hemoglobin A1C 01/27/2025 025, 07/18/2024, 04/10/2024, Additional history exists Alcohol/Substance Use Screening 04/10/2025 04/10/2024 Depression Screening 07/18/2025 07/18/2024, 07/18/20 24 SDOH Screening 07/18/2025 07/18/2024 Tobacco Screening 11/04/2025 11/04/2024 Eye Exam 06/01/2026 06/01/2024 Colonoscopy 04/07/2029 04/07/2019 Colorectal Cancer Screening 04/07/2029 DTaP/Tdap/Td Vaccines (4 - Td or Tdap) 06/07/2029 06/07/2019, 06/07/2019, 07/04/2012, Additional history exists Hepatitis B Vaccines Completed 12/18/2014, 01/15/2014, 10/04/2013 Hepatitis C Screening Completed 02/01/2020, 020 Zoster Vaccines Completed 08/20/2020, 05/25, 04/13/2018 Pneumococcal Vaccine: 50+ Years Completed 07/19/2022, 06/09/2009, 01/19/2001 RSV Patients and Patients Aged 60 years or older Completed 01/20/2024 Influenza Vaccine Completed 07/18/2024, , 07/19/2022, Additional history exists HIB Vaccines Aged Out No longer eligi ble based on patient's age to complete this topic HPV Vaccines Aged Out No longer eligi ble based on patient's age to complete this topic Hepatitis A Vaccines Aged Out No long er eligible based on patient's age to complete this topic IPV Vaccines Aged Out No longer eligi ble based on patient's age to complete this topic Meningococcal Vaccine Aged Out No bowen dk eligible based on patient's age to complete this topic RSV under 20 months Aged Out No longe r eligible based on patient's age to complete this topic Rotavirus Vaccines Aged Out No longer eligible based on patient's age to complete this topic Goals Goal Patient Goal Type Associated Problems Recent Progress Patient-Stated? Author Blood Pressure < 140/90 Blood Pressure 128/68(2024 10:10 AM EST) No Negro Whitfield, PharmD Hemoglobin A1c < 7 Result Component 11.3(01/06/20 25 1:15 PM EST) No Negro Whitfield PharmD Procedures Procedure Name Priority Date/Time Associated Diagnosis Comments POCT GLYCOSYLATED HEMOGLOBIN (HGB A1C) Routine 10/29/2024 1:15 PM EST Type 2 diabetes mellitus with hyperglycemia, without long-term current use of insulin ([facility]) POCT GLUCOSE Routine 10/29/2024 1:15 PM EST Type 2 diabetes mellitus with hyperglycemia, without long-term current use of insulin ([facility]) DIABETES EYE EXAM Routine 06/01/2024 LIPID PANEL WITH REFLEX TO DIRECT LDL Routine 12/29/2023 9:06 AM EST Type 2 diabetes mellitus with hyperglycemia, without long-term current use of insulin ([facility]) Dyslipidemia ALBUMIN, RANDOM URINE W/CREATININE Routine 12/29/2023 9:03 AM EST Type 2 diabetes mellitus with hyperglycemia, without long-term current use of insulin ([facility]) ZZZ HISTORICAL HEPATITIS C ANTIBODY RFLX Routine 02/01/2020 8:10 AM EDT COLONOSCOPY Routine 04/07/2019 from Last 3 Months or Most Recently Relevant to Health Maintenance Results * (ABNORMAL) POCT glycosylated hemoglobin (Hgb A1c) (10/29/2024 1:15 PM EST) Hemoglobin A1C 11.3(A) 4.0 - 6.0 % QC Media Lot # [id number] Lot# Expiration Date ,220 Blood Capillary blood specimen / Unknown 10/29/2024 1:15 PM EST Antonella Burnham MD POINT OF CARE TEST ENTER/EDIT OR DERABLES Final Result * POCT glucose manually resulted (10/29/2024 1:15 PM EST) Glucose Blood, POC 148 60 - 200 mg/dL QC Media Lot # [id number] Lot# Expiration Date [id number] Blood Capillary blood specimen / Unknown 10/29/2024 1:15 PM EST Antonella Burnham MD POINT OF CARE TEST ENTER/EDIT OR DERABLES Final Result * Hm Diabetes Eye Exam (06/01/2024) Eye Exam Normal Normal 06/01/2024 Amalia Provider HEALTH MAINTENANCE Final Result * (ABNORMAL) Lipid Panel with Reflex to Direct LDL (12/29/2023 9:06 AM EST) Triglycerides 143 <150 mg/dL [facility] Comment:Desirable Triglyceri de: less than 150 mg/dLBorderline High Triglyceride 150-199 mg/dLHigh Triglyceride: 200-499 mg/dLVery High Triglyceride: greater than or equal to 5OO mg/dL Cholesterol 154 <200 mg/dL [facility] Comment:Desirable Cholestero l: less than 200 mg/dLBorderline High Cholesterol: 200-239 mg/dLHigh Cholesterol: greater than 239 mg/dL LDL Cholesterol Calculated 92 <100 mg/dL [facility] Comment:Desirable LDL: less than 100 mg/dLNear Optimal/Above Optimal LDL: 110- 129 mg/dLBorderline High LDL: 130-159 mg/dLHigh LDL: 160-189 mg/dLVery High LDL: greater than or equal to 190 mg/dL HDL Cholesterol 34(L) >40 mg/dL [facility] Comment:Desirable HDL: great er than 40 mg/dL Note: This HDL assay may give artificially low results in patients with liver disease. Blood 12/29/2023 9:06 AM EST 12/29/2023 11:31 AM EST Antonella Burnham MD LAB BLOOD ORDERABLES Final Resul t [facility] [address] [place] [phone] * Albumin, Random Urine W/Creatinine (12/29/2023 9:03 AM EST) Creatinine, Urine 213.12 mg/dL [facility] Microalbumin Urine 51.0 mg/L [facility] Microalbum Creatinine Ratio Ur 23.9 <30 ug/mg cr [facility] Comment:Albumin/Creatinine R atio Reference Ranges: Normal: < 30 ug/mg creatinine Microalbuminuria: 30 - 300 ug/mg creatinineClinical Albuminuria: > 300 ug/mg creatinine Urine 12/29/2023 9:03 AM EST 12/29/2023 11:04 AM EST Antonella Burnham MD LAB URINE ORDERABLES Final Resul t [facility] [address] [place] [address] [phone] * HEPATITIS C ANTIBODY RFLX (02/01/2020 8:10 AM EDT) HEPATITIS C ANTIBODY NONREACTIVE NONREACTIVE [facility] Comment: Antibodies to HCV not detected; does not exclude early acute HCV infection. 02/01/2020 8:10 AM EDT Antonella Burnham MD HISTORICAL/NON ORDERABLE LABS Fi nal Result Performing Organization Address City/[facility]/ZIP Co de Phone Number [facility] Count includes the [facility] Anywhere [address] * Colonoscopy (04/07/2019) Colonoscopy Normal Normal Historical Provider HEALTH MAINTENANCE Edited Result - Final from Last 3 Months or Most Recently Relevant to Health Maintenance Insurance [facility] Care Teams [employer] Technician Relationship Specialty Start Date End Date Antonella Burnham MD [address] [place] [address] PCP - General Family Medicine 10/24/18 Negro Whitfield, MaicolD [address] [place] [address] Pharmacist Internal Medicine 01/20/24
--- OUTSIDE RECORDS SUMMARY | 2024-11-29 08:56 | XMS_ITS | Encounter Summary ---
Author Organization [employer] Address [address] [place] [address] 7 [place] [address] Care Team Providers Care Presales Engineer Name Role Phone Antonella Burnham MD Primary Care Provider [phone] Negro Whitfield PharmD Unavailable [phone] Reason for Visit * Reason Comments Med Refill Encounter Details Date Type Department Care Team (Late st Contact Info) Description 06/29/[address] [facility] [address] [place], [place] [phone] Antonella Burnham MD [address] [place], [place] [phone] Gastroesophageal reflux disease, unspecified whether esophagitis present Social History Tobacco Use Types Packs/Day Years Used Date Smoking Tobacco: Never Passive Smoke Exposure: Never Smokeless Tobacco: Never Depression Answer Date Recorded Patient Health Questionnaire-9 Score 11 03/29/2023 Depression Answer Date Recorded Patient Health Questionnaire-2 Score 4 03/29/2023 Sex and Gender Information Value Date Recorded Sex Assigned at Male 08/23/2022 10:16 AM EDT Legal Sex Male 10:16 AM EDT Gender Identity Male 08/23/2022 10:16 AM EDT Sexual Orientation Straight 08/23/2022 10 :16 AM EDT documented as of this encounter Plan of Treatment Upcoming Encounters Date Type Department Care Team (Late st Contact Info) Description 12/27/2024 9:30 AM EST Medication Management [facility] [address] [place], [place] [phone] Negro Whitfield, PharmD [address] [place], [place] [phone] 01/04/2025 11:30 AM EDT Clinical Support [facility] [address] [place] [address] Sulma Alvarado, GISELE [address] [place] [address] documented as of this encounter Visit Diagnoses Diagnosis Gastroesophageal reflux disease, unspecified whether esophagitis present documented in this encounter Additional Health Concerns Assessment Noted Time PHQ-9 Depression Total Score: 11 023 1:11 PM EDT documented as of this encounter Care Teams Presales Engineer Relationship Specialty Start Date End Date Antonella Burnham MD [address] [place] [address] PCP - General Family Medicine 10/24/18 Negro Whitfield, MaicolD [address] [place] [address] Pharmacist Internal Medicine 01/20/24 documented as of this encounter
--- OUTSIDE RECORDS SUMMARY | 2024-11-29 08:56 | XMS_ITS | Encounter Summary ---
Author Organization [employer] Address [address] [facility] 7t [place] [address] Care Team Providers Care Language And Literature Division Chair Name Role Phone Antonella Burnham MD Primary Care Provider [phone] Negro Whitfield PharmD Unavailable [phone] Encounter Details Date Type Department Care Team (Late st Contact Info) Description 09/10/2024 Telephone [facility] [address] [place], [place] [phone] Galilea Hanna, PharmD [address] [place] [address] Social History Tobacco Use Types Packs/Day Years [...] encounter Miscellaneous Notes * Telephone Encounter - Galilea Hanna PharmD - 09/10/2024 2:54 PM EST [place]. We received this patients prescription for citalopram 40 mg once daily. Per package insert 20 mg/day is the maximum recommended dose in elderly patients (>60 yo) due to the risk of QTC prolongation. Please assist thank you. documented in this encounter Plan of Treatment Upcoming Encounters Date Type Department Care Team (Late st Contact Info) Description 12/27/2024 9:30 AM EST Medication Management [address] [address] Negro Whitfield, Shyla [address] [place] [address] 01/04/2025 11:30 AM EDT Clinical Support [address] [address] Sulma Alvarado RN [address] [place] [address] documented as of this encounter Goals Goal [...] documented as of this encounter Care Teams Language And Literature Division Chair Relationship Specialty Start Date End Date Antonella Burnham MD [address] [place] [address] PCP - General Family Medicine 10/24/18 Negro Whitfield, Shyla [address] [place] [address] Pharmacist Internal Medicine 01/20/24 documented as of this encounter
--- OUTSIDE RECORDS SUMMARY | 2024-11-29 08:56 | XMS_ITS | Encounter Summary ---
Author Organization [employer] Address [address] [facility] 7t [place] [address] Care Team Providers Care Retail Performance Specialist Name Role Phone Antonella Burnham MD Primary Care Provider [phone] Negro Whitfield PharmD Unavailable [phone] Encounter Details Date Type Department Care Team (Late st Contact Info) Description 10/31/2024 Telephone [facility] [address] [place], [place] [phone] Antonella Burnham MD [address] [place], [place] [phone] Social History Tobacco Use Types Packs/Day Years [...] encounter Miscellaneous Notes * Telephone Encounter - Vanda Baez - 10/31/2024 10:51 AM EST Pharmacy [facility] attempted outreach call on 10/31/24 for CDTM - Diabetes appointment; however, unable to reach patient. LVM for patient to contact Vanda Baez at [phone]. documented in this encounter Plan of Treatment Upcoming Encounters Date Type Department Care Team ([facility] st Contact Info) Description 12/27/2024 9:30 AM EST Medication Management [facility] [address] [place] [phone] Negro Whitfield, PharmD [address] [place] [address] 01/04/2025 11:30 AM EDT Clinical Support [facility] [address] [place] [address] Sulma Alvarado, GISELE [address] [place] [address] documented as of this encounter Goals Goal [...] documented as of this encounter Care Teams Retail Performance Specialist Relationship Specialty Start Date End Date Antonella Burnham MD [address] [place] [address] PCP - General Family Medicine 10/24/18 Negro Whitfield PharmD [address] [place] [address] Pharmacist Internal Medicine 01/20/24 documented as of this encounter
--- OUTSIDE RECORDS SUMMARY | 2024-11-29 08:56 | XMS_ITS | Encounter Summary ---
Author Organization [employer] Address [address] [facility] 7t [place] [address] Care Team Providers Care Admissions Advisor Name Role Phone Antonella Burnham MD Primary Care Provider [phone] Negro Whitfield PharmD Unavailable [phone] Encounter Details Date Type Department Care Team (Latest Contact Info) Description 11/19/2024 Travel Social History Tobacco Use Types Packs/Day Years [...] Description 12/27/2024 9:30 AM EST Medication Management [address] [address] Negro Whitfield PharmD [address] [place] [phone] 01/04/2025 11:30 AM EDT Clinical Support [address] [address] Sulma Alvarado RN [address] [place] [address] documented as of this encounter Goals Goal [...] documented as of this encounter Care Teams Admissions Advisor Relationship Specialty Start Date End Date Antonella Burnham MD [address] [place] [address] PCP - General Family Medicine 10/24/18 Negro Whitfield, PharmD [address] [place] [phone] Pharmacist Internal Medicine 01/20/24 documented as of this encounter
--- OUTSIDE RECORDS SUMMARY | 2024-11-29 08:56 | XMS_ITS | Encounter Summary ---
Author Organization [employer] Address 75 [facility] 7t [place] [address] Care Team Providers Care Administration Clerk Name Role Phone Antonella Burnham MD Primary Care Provider [phone] Negro Whitfield PharmD Unavailable [phone] Reason for Visit * Reason Onset Date Comments Med Refill 11/22/2024 Encounter Details Date Type Department Care Team ([facility] st Contact Info) Description 11/22/2024 Telephone [facility] MEDICINE 230 [place], [place] [phone] Antonella Burnham MD 230 [place], [place] [phone] Med Refill Social History Tobacco Use Types Packs/Day Years [...] encounter Miscellaneous Notes * Telephone Encounter - Emilie Kingsley - 11/22/2024 3:15 PM EST Pt walked in requesting refill on traMADol documented in this encounter Plan of Treatment Upcoming Encounters Date Type Department Care Team (Late st Contact Info) Description 12/27/2024 9:30 AM EST Medication Management [facility] MEDICINE [address] [place] [address] Negro Whitfield, PharmD [address] [place] [address] 01/04/2025 11:30 AM EDT Clinical Support [facility] MEDICINE [address] [place] [address] Sulma Alvarado, RN 505 [place] [address] documented as of this encounter Goals Goal [...] documented as of this encounter Care Teams Administration Clerk Relationship Specialty Start Date End Date Antonella Burnham MD 230 [place] [address] PCP - General Family Medicine 10/24/18 Negro Whitfield PharmD [address] [place] [address] Pharmacist Internal Medicine 01/20/24 documented as of this encounter
--- OUTSIDE RECORDS SUMMARY | 2024-11-29 08:56 | XMS_ITS | Encounter Summary ---
Author Organization [employer] Address 75 [facility] 7t [place] [address] Care Team Providers Care Siene Maker Name Role Phone Antonella Burnham MD Primary Care Provider Negro Whitfield PharmD Unavailable [phone] Reason for Visit * Reason Onset Date Comments telephone call 11/07/2024 Encounter Details Date Type Department Care Team ([facility] st Contact Info) Description 11/07/2024 Telephone [facility] MEDICINE 230 [place], [place] [phone] Antonella Burnham MD 230 [place], [place] [phone] telephone call Social History Tobacco Use Types Packs/Day Years [...] encounter Miscellaneous Notes * Telephone Encounter - Sandra Whitfield - 11/07/2024 10:56 AM EST Pt walked in requesting to rs appt from 08/10/24. documented in this encounter Plan of Treatment Upcoming Encounters Date Type Department Care Team (Late st Contact Info) Description 12/27/2024 9:30 AM EST Medication Management [facility] MEDICINE [address] [place] [address] Negro Whitfield, PharmD [address] [place] [address] 01/04/2025 11:30 AM EDT Clinical Support [facility] MEDICINE [address] [place] [address] Sulma Alvarado, RN 505 [place] [address] documented as of this encounter Goals Goal [...] documented as of this encounter Care Teams Siene Maker Relationship Specialty Start Date End Date Antonella Burnham MD 230 [place] [address] PCP - General Family Medicine 10/24/18 Negro Whitfield PharmD [address] [place] [address] Pharmacist Internal Medicine 01/20/24 documented as of this encounter
--- OUTSIDE RECORDS SUMMARY | 2024-11-29 08:56 | XMS_ITS | Encounter Summary ---
Author Organization [employer] Address 75 [facility] 7t [place] [address] Care Team Providers Care Vice President Underwriting Name Role Phone Antonella Burnham MD Primary Care Provider [phone] Negro Whitfield PharmD Unavailable [phone] Reason for Visit * Reason Comments Med Refill Encounter Details Date Type Department Care Team (Late st Contact Info) Description 11/23/2024 Refill [facility] MEDICINE 230 [place] [address] Antonella Burnham MD 230 [place], [place] [phone] Right leg pain; Chronic bilateral low back pain, unspecified whether sciatica present Social History Tobacco Use Types Packs/Day [...] Description 12/27/2024 9:30 AM EST Medication Management [address] [address] Negro Whitfield PharmD [address] [place] [address] 01/04/2025 11:30 AM EDT Clinical Support [address] [address] Sulma Alvarado, GISELE 505 [place] [address] documented as of this encounter Goals Goal Patient Goal Type Associated Problems Recent Progress Patient-Stated? Author Blood Pressure < 140/90 Blood Pressure 128/68(2024 10:10 AM EST) No Negro Whitfield PharmD Hemoglobin A1c < 7 Result Component 11.3(10/29/19 1:15 PM EST) No Negro Whitfield PharmD documented as of this encounter Visit Diagnoses Diagnosis Right leg pain Pain in soft tissues of limb Chronic bilateral low back pain, unspecified whether sciatica present documented in this encounter Additional Health Concerns Assessment Noted Time PHQ-9 Depression Total Score: 11 024 10:18 AM EDT documented as of this encounter Care Teams Vice President Underwriting Relationship Specialty Start Date End Date Antonella Burnham MD 230 [place] [address] PCP - General Family Medicine 10/24/18 Negro Whitfield, Shyla [address] [place] [address] Pharmacist Internal Medicine 01/20/24 documented as of this encounter
--- OUTSIDE RECORDS SUMMARY | 2024-11-29 08:56 | XMS_ITS | Encounter Summary ---
Author Organization [employer] Address 75 [facility] 7t [place] [address] Care Team Providers Care Stamping Mill Tender Name Role Phone Antonella Burnham MD Primary Care Provider [phone] Negro Whitfield PharmD Unavailable [phone] Encounter Details Date Type Department Care Team (Latest Contact Info) Description 11/28/2024 Travel Social History Tobacco Use Types Packs/Day [...] Description 12/27/2024 9:30 AM EST Medication Management [address] [address] Negro Whitfield PharmD [address] [place] [address] 01/04/2025 11:30 AM EDT Clinical Support [address] [address] Sulma Alvarado RN 505 [place] [address] documented as of this encounter Goals Goal [...] documented as of this encounter Care Teams Stamping Mill Tender Relationship Specialty Start Date End Date Antonella Burnham MD [address] [place] [address] PCP - General Family Medicine 10/24/18 Negro Whitfield, PharmD [address] [place] [address] Pharmacist Internal Medicine 01/20/24 documented as of this encounter
--- OUTSIDE RECORDS SUMMARY | 2024-11-29 08:56 | XMS_ITS | Encounter Summary ---
Author Organization [employer] Address 75 [facility] 7t [place] [address] Care Team Providers Care Junior Automation Engineer Name Role Phone Antonella Burnham MD Primary Care Provider [phone] Negro Whitfield PharmD Unavailable [phone] Reason for Visit * Reason Onset Date Comments telephone call 11/16/2024 Encounter Details Date Type Department Care Team ([facility] st Contact Info) Description 11/16/2024 Telephone [facility] MEDICINE 230 [place] [address] Sulma Alvarado RN 505 [place] [address] telephone call Social History Tobacco Use Types [...] encounter Miscellaneous Notes * Telephone Encounter - Yessica Ochoa - 11/16/2024 2:04 PM EST Pt walked in requesting to re-schedule an appt he missed on 08/10/2024. Pt said this is the 10th time he comes in trying to reschedule and he has not been ashtyn to be able to get an appointment. I informed pt that he will be getting a call soon at [phone]. I explained to pt that Sulma is currently on vacation. Pt verbalized understanding and said he will wait for a call. documented in this encounter Plan of Treatment Upcoming Encounters Date Type Department Care Team (Late st Contact Info) Description 12/27/2024 9:30 AM EST Medication Management [facility] MEDICINE [address] [place] [address] Negro Whitfield, PharmD 230 [place] [address] 01/04/2025 11:30 AM EDT Clinical Support [facility] MEDICINE [address] [place] [address] Sulma Alvarado, RN [address] [place] [address] documented as of this encounter Goals Goal [...] documented as of this encounter Care Teams Junior Automation Engineer Relationship Specialty Start Date End Date Antonella Burnham MD [address] [place] [address] PCP - General Family Medicine 10/24/18 Negro Whitfield PharmD [address] [place] [address] Pharmacist Internal Medicine 01/20/24 documented as of this encounter
--- OUTSIDE RECORDS SUMMARY | 2024-11-29 08:56 | XMS_ITS | Encounter Summary ---
Author Organization [employer] Address 75 [facility] 7t [place] [address] Care Team Providers Care Compotype Operator Name Role Phone Antonella Burnham MD Primary Care Provider [phone] Negro Whitfield PharmD Unavailable [phone] Encounter Details Date Type Department Care Team ([facility] st Contact Info) Description 11/07/2024 Telephone [facility] MED [facility] PEDS 505 [place], [place] [phone] Sulma Alvarado, GISELE 505 [place] [address] Social History Tobacco Use Types Packs/Day Years [...] Telephone Encounter - Sulma Alvarado RN - 11/07/2024 11:18 AM EST TC back to pt regarding message below. Called via BLS ID# [id number]. No answer, lvm for pt to c/b. documented in this encounter Plan of Treatment Upcoming Encounters Date Type Department Care Team (Late st Contact Info) Description 12/27/2024 9:30 AM EST Medication Management [facility] MEDICINE [address] [place] [address] Negro Whitfield, PharmRoberta 230 [place] [address] 01/04/2025 11:30 AM EDT Clinical Support [facility] MEDICINE [address] [place] [address] Sulma Alvarado RN 505 [place] [address] documented as of this encounter Goals Goal [...] documented as of this encounter Care Teams Compotype Operator Relationship Specialty Start Date End Date Antonella Burnham MD 230 [place] [address] PCP - General Family Medicine 10/24/18 Negro Whitfield PharmD [address] [place] [address] Pharmacist Internal Medicine 01/20/24 documented as of this encounter
--- OUTSIDE RECORDS SUMMARY | 2024-11-29 08:56 | XMS_ITS | Encounter Summary ---
Author Organization [employer] Address [address] [place] [address] 7t [place] [address] Care Team Providers Care Mothercraft Nurse Name Role Phone Antonella Burnham MD Primary Care Provider [phone] Negro Whitfield PharmD Unavailable [phone] Encounter Details Date Type Department Care Team (Late st Contact Info) Description 10/27/2022 Abstract [facility] MEDICINE 230 [place], [place] [phone] Antonella Burnham MD 230 [place], [place] [phone] Social History Tobacco Use Types Packs/Day Years Used Date Smoking Tobacco: Never Passive Smoke Exposure: Never Smokeless Tobacco: Never Sex and Gender Information Value Date Recorded Sex Assigned at Male 08/23/2022 10:16 AM EDT Legal Sex Male 10:16 AM EDT Gender Identity Male 08/23/2022 10:16 AM EDT Sexual Orientation Straight 08/23/2022 10 :16 AM EDT COVID-19 Exposure Response Date Recorded In the last 10 days, have yo u been in contact with someone who was confirmed or suspected to have Coronavirus/COVID-19? No / Unsure 10/27/2022 11:23 AM EST documented as of this encounter Plan of Treatment Upcoming Encounters Date Type Department Care Team (Late st Contact Info) Description 12/27/2024 9:30 AM EST Medication Management [facility] MEDICINE 230 [place], [place] [phone] Negro Whitfield, PharmD 230 [place], [place] [phone] 01/04/2025 11:30 AM EDT Clinical Support [facility] MEDICINE 230 [place] [address] Sulma Alvarado, GISELE 505 [place] [address] documented as of this encounter Visit Diagnoses Not on filedocumented in this encounter Care Teams Mothercraft Nurse Relationship Specialty Start Date End Date Antonella Burnham MD [address] [place] [address] PCP - General Family Medicine 10/24/18 Negro Whitfield, PharmD [address] [place] [address] Pharmacist Internal Medicine 01/20/24 documented as of this encounter
--- OUTSIDE RECORDS SUMMARY | 2024-11-29 08:56 | XMS_ITS | Encounter Summary ---
Author Organization [employer] Address 75 [facility] 7t [place] [address] Care Team Providers Care Ultimate Hoops Scoreboard Operator Name Role Phone Antonella Burnham MD Primary Care Provider [phone] Negro Whitfield PharmD Unavailable [phone] Reason for Visit * Reason Onset Date Comments telephone call 11/13/2024 Encounter Details Date Type Department Care Team ([facility] st Contact Info) Description 11/13/2024 Telephone [facility] MEDICINE 230 [place] [address] Sulma Alvarado RN 505 [place] [address] telephone call Social History Tobacco Use Types [...] * Telephone Encounter - Sandra Whitfield - 11/13/2024 10:56 AM EST Pt walked in stating he missed a tc by you and he is waiting for a appt with you or another call back. documented in this encounter Plan of Treatment Upcoming Encounters Date Type Department Care Team (Late st Contact Info) Description 12/27/2024 9:30 AM EST Medication Management [facility] MEDICINE [address] [place] [address] Negro Whitfield, PharmD [address] [place] [address] 01/04/2025 11:30 AM EDT Clinical Support [facility] MEDICINE [address] [place] [address] Sulma Alvarado, RN [address] [place] [address] documented as of this encounter Goals Goal [...] documented as of this encounter Care Teams Ultimate Hoops Scoreboard Operator Relationship Specialty Start Date End Date Antonella Burnham MD 230 [place] [address] PCP - General Family Medicine 10/24/18 Negro Whitfield PharmD [address] [place] [address] Pharmacist Internal Medicine 01/20/24 documented as of this encounter
--- OUTSIDE RECORDS SUMMARY | 2024-11-29 08:56 | XMS_ITS | Encounter Summary ---
Author Organization [employer] Address [address] [place] [address] 7t [place] [address] Care Team Providers Care Radiological Equipment Specialist Name Role Phone Antonella Burnham MD Primary Care Provider [phone] Negro Whitfield PharmD Unavailable [phone] Encounter Details Date Type Department Care Team (Late st Contact Info) Description 03/22/2023 Orders Only [facility] MEDICINE [address] [place] [address] [phone] Antonella Burnham MD [address] [place] [address] [phone] Severe episode of recurrent major depressive disorder, 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) Social History Tobacco Use Types Packs/Day Years [...] Description 12/27/2024 9:30 AM EST Medication Management [facility] MEDICINE [address] [place] [address] [phone] Negro Whitfield, PharmD 230 [place], [place] [phone] 01/04/2025 11:30 AM EDT Clinical Support [facility] MEDICINE [address] [place] [address] Sulma Alvarado, RN 505 [place] [address] documented as of this encounter Visit Diagnoses Diagnosis Severe episode of recurrent major depressive disorder, without psychotic features (CMS/HCC)- Primary documented in this encounter Care Teams Radiological Equipment Specialist Relationship Specialty Start Date End Date Antonella Burnham MD [address] [place] [address] PCP - General Family Medicine 10/24/18 Negro Whitfield, MaicolD [address] [place] [address] Pharmacist Internal Medicine 01/20/24 documented as of this encounter
--- OUTSIDE RECORDS SUMMARY | 2024-11-29 08:56 | XMS_ITS | Encounter Summary ---
Author Organization [employer] Address [address] [place] [address] 7t [place] [address] Care Team Providers Care Rn Lvn Name Role Phone Antonella Burnham MD Primary Care Provider [phone] Negro Whitfield PharmD Unavailable [phone] Encounter Details Date Type Department Care Team (Late st Contact Info) Description 11/03/2022 Telephone [facility] MEDICINE [address] [place] [address] [phone] Antonella Burnham MD 230 [place], [place] [phone] Social History Tobacco Use Types Packs/Day Years [...] Medication Management [facility] MEDICINE 230 [place], [place] [phone] Negro Whitfield, PharmD 230 [place], [place] [phone] 01/04/2025 11:30 AM EDT Clinical Support [facility] MEDICINE 230 [place] [address] Sulma Alvarado, GISELE 505 [place] [address] documented as of this encounter Visit Diagnoses Not on filedocumented in this encounter Care Teams Rn Lvn Relationship Specialty Start Date End Date Antonella Burnham MD [address] [place] [address] PCP - General Family Medicine 10/24/18 Negro Whitfield, PharmD [address] [place] [address] Pharmacist Internal Medicine 01/20/24 documented as of this encounter
--- OUTSIDE RECORDS SUMMARY | 2024-11-29 08:56 | XMS_ITS | Encounter Summary ---
Author Organization [employer] Address [address] [facility] 7t [place] [address] Care Team Providers Care Mooner Name Role Phone Antonella Burnham MD Primary Care Provider [phone] Negro Whitfield PharmD Unavailable [phone] Reason for Visit * Reason Onset Date Comments Med Refill 11/26/2024 Encounter Details Date Type Department Care Team (Late st Contact Info) Description 11/26/2024 Refill [facility] MED & PEDS 505 [place] [address] Sulma Alvarado, RN 505 [place] [address] Right leg pain; Chronic bilateral low back [...] Description 12/27/2024 9:30 AM EST Medication Management [address] [address] Negro Whitfield PharmD [address] [place] [address] 01/04/2025 11:30 AM EDT Clinical Support [address] [address] Sulma Alvarado, GISELE 505 [place] [address] documented as of this encounter Goals Goal [...] documented as of this encounter Care Teams Mooner Relationship Specialty Start Date End Date Antonella Burnham MD 230 [place] [address] PCP - General Family Medicine 10/24/18 Negro Whitfield, Shyla 230 [place] [address] Pharmacist Internal Medicine 01/20/24 documented as of this encounter
[2024-11-29 11:45] LABS: Albumin Level 4.2 g/dL (3.5-5.0); Alkaline Phosphatase 55 U/L (39-117); Anion Gap 12 (12-20); Aspartate Amino Transferase 26 U/L (5-37); Bilirubin Total 0.4 mg/dL (0.0-1.0); Blood Urea Nitrogen 13 mg/dL (9-16); Calcium 9.6 mg/dL (8.4-10.2); Carbon Dioxide 29 mmol/L (22-29); Chloride 103 mmol/L (96-108); Cholesterol 148 mg/dL (<200); Estimated Glomerular Filt Rate > 60; Glucose Random 98 mg/dL (60-115); HDL Cholesterol 44 mg/dL (>40); LDL Cholesterol Calculated 92 mg/dL (<100); Sodium 140 mmol/L (135-145); Total Protein 7.3 g/dL (6.5-8.0); Triglycerides 62 mg/dL (<150)
[2024-11-29 11:47] LABS: Reflex LDLD? No
[2024-11-29 11:57] LABS: Alanine Aminotransferase 31 U/L (0-40)
[2024-11-29 11:58] LABS: Creatinine Urine 316.47 mg/dL; Microalbum/Creatinine Ratio Ur 5.3 ug/mg cr (<30)
[2024-11-29 12:05] LABS: Vitamin B12 510 pg/mL (200-900)
== END 2024-11-29 08:40 | disposition home or self-care (01) ==
LOC: HO.HHCL 08:39
PROVIDERS: Visit Provider Family Medicine
DX: E11.65 Type 2 diabetes mellitus with hyperglycemia (principal); E78.5 Hyperlipidemia, unspecified
CPT/HCPCS: 36415; 80053; 80061; 82043; 82570; 82607; 82746

== ENCOUNTER 2025-07-08 08:11 | Outpatient (REF) | payer OTHER, SELFPAY ==
--- OUTSIDE RECORDS SUMMARY | 2025-07-08 08:51 | XMS_ITS | Encounter Summary ---
Author Organization [employer] Address 75 [facility] 7t [place] [address] Care Team Providers Care Casing Puller Name Role Phone Antonella Burnham MD Primary Care Provider [phone] Negro Whitfield PharmD Unavailable [phone] Reason for Referral * Consultation (Routine) - Pending Review Specialty Diagnoses / Procedures Referred By Contac t Referred To Contact Pharmacy Diagnoses Type 2 diabetes mellitus with hyperglycemia, without long-term current use of insulin (CMS/HCC) Essential hypertension Antonella Burnham MD 230 [place] [address] Phone: tel: fax: Referral ID Status Reason Start Date Expiration Date Visits Requested Visits Authorized [id number] Pending Review Consult and Treat 11/30/2024 11/30/2025 6 6 Encounter Details Date Type Department Care Team (Late st Contact Info) Description 11/30/2024 Orders Only [facility] MEDICINE [address] [place] [address] Antonella Burnham MD [address] [place] [address] Type 2 diabetes mellitus with hyperglycemia, without long-term current use of insulin (CMS/HCC) (Primary Dx); Dyslipidemia; Essential hypertension Social History Tobacco Use Types Packs/Day Years [...] Care Team (Late st Contact Info) Description 07/19/2025 10:30 AM EDT Clinical Support [facility] MEDICINE 230 [place] [address] Sulma Alvarado RN 505 [place] [address] 07/25/2025 9:00 AM EDT Office Visit [facility] MEDICINE 230 [place] [address] Antonella Burnham MD 230 [facility] [place] [address] 08/29/2025 11:00 AM EST Medication Management [facility] MEDICINE 230 [facility] [address] Negro Whitfield, Shyla 230 [facility] [place] Scheduled Referrals Name Type Priority Associated Diagnoses Orde r Schedule Referral to Pharmacy CD Outpatient Referral Routine Type 2 diabetes mellitus with hyperglycemia, without long-term current use of insulin ([facility]) Essential hypertension Ordered: 11/30/2024 documented as of this encounter Goals Goal Patient Goal Type Associated Problems Recent Progress Patient-Stated? Author Blood Pressure < 140/90 Blood Pressure 126/70(2024 10:59 AM EDT) No Negro Whitfield PharmD Hemoglobin A1c < 7 Result Component 8.7( 11:25 AM EDT) No Negro Whitfield, Shyla documented as of this encounter Visit Diagnoses Diagnosis Type 2 diabetes mellitus with hyperglycemia, without long-term current use of insulin ([facility])- Primary Dyslipidemia Other and unspecified hyperlipidemia Essential hypertension Unspecified essential hypertension documented in this encounter Additional Health Concerns Assessment Noted Time PHQ-9 Depression Total Score: 11 024 10:18 AM EDT documented as of this encounter Care Teams Casing Puller Relationship Specialty Start Date End Date Antonella Burnham MD [facility] [place] [address] PCP - General Family Medicine 10/24/18 Negro Whitfield, MaicolD [address] [place], [place] [phone] Pharmacist Internal Medicine 01/20/24 documented as of this encounter
--- OUTSIDE RECORDS SUMMARY | 2025-07-08 08:51 | XMS_ITS | Clinical Summary ---
Author Organization [employer] Address [address] [facility] [address] [place] [address] Care Team Providers Care Complaint Operator Name Role Phone Antonella Burnham MD Primary Care Provider [phone] Negro Whitfield PharmD Unavailable [phone] Allergies No known active allergies Medications * This document contains information received from the source organization and may not represent a complete record from that organization. naloxone (Narcan) 4 mg/0.1 mL nasal spray FOR SUSPECTED OPIOID OVERDOSE. SPRAY 0.1mL IN ONE NOSTRIL. REPEAT IN ALTERNATE NOSTRIL 2-3 MINUTES IF NEEDED. SEEK MEDICAL ATTENTION IMMEDIATELY EVEN IF PATIENT RESPONDS. 022 Active lisinopril 10 MG tablet TAKE 1 TABLET BY MOUTH EVERY DAY IN THE MORNING 90 tablet 3 024 Active traZODone (Desyrel) 100 MG tablet Take 1 tablet (100 mg) by mouth at bedtime. TAKE 1 TABLET BY MOUTH AT BEDTIME AFTER MEALS 90 tablet 024 Active citalopram (CeleXA) 20 MG tablet Take 1 tablet (20 mg) by mouth Once per day. 90 tablet 3 025 Active aspirin (Aspirin Adult Low Strength) 81 MG EC tabletIndicati ons:Type 2 diabetes mellitus with hyperglycemia, without long-term current use of insulin (CMS/[facility]) Take 1 tablet (81 mg) by mouth Once per day. 90 tablet 3 025 Active Blood Glucose Monitoring Suppl (FreeStyle [place] Lite) w/Device kitIndications :Type 2 diabetes mellitus with hyperglycemia, without long-term current use of insulin (CMS/[facility]) Use to check BG twice daily as directed 1 kit 025 Active atorvastatin (Lipitor) 80 MG tabletIndicati ons:Type 2 diabetes mellitus with hyperglycemia, without long-term current use of insulin ([facility]) Take 1 tablet (80 mg) by mouth Once per day. 30 tablet 11 025 Active montelukast (Singulair) 10 MG tablet TAKE 1 TABLET BY MOUTH EVERY DAY AT BEDTIME 90 tablet 3 025 Active Dulaglutide (Trulicity) 4.5 MG/0.5ML solution auto-injectorI ndications:Typ e 2 diabetes mellitus with hyperglycemia, without long-term current use of insulin ([facility]) INJECT ONE PEN (= 4.5MG) SUBCUTANEOUSLY ONCE A WEEK DIRECTED 2 mL 025 Active Oyster Shell Calcium 500 MG tabletIndicati ons:Vitamin deficiency TAKE 1 TABLET BY MOUTH TWICE DAILY 180 tablet 3 025 Active Alcohol Swabs (Alcohol Prep) 70 % padsIndication s:Type 2 diabetes mellitus with hyperglycemia, without long-term current use of insulin ([facility]) USE DIRECTED TO TEST BLOOD SUGAR TWICE DAILY 100 each 025 Active glucose blood (FREESTYLE LITE) test stripIndicatio ns:Type 2 diabetes mellitus with hyperglycemia, without long-term current use of insulin ([facility]) USE DIRECTED TO TEST BLOOD SUGAR TWICE DAILY 100 strip 025 Active TRUEplus Lancets 33G miscIndication s:Type 2 diabetes mellitus with hyperglycemia, without long-term current use of insulin ([facility]) USE DIRECTED TO TEST BLOOD SUGAR TWICE DAILY 100 each 025 Active traMADol (Ultram) 50 MG tabletIndicati ons:Right leg pain,Chronic bilateral low back pain, unspecified whether sciatica present Take 1 tablet (50 mg) by mouth if needed each day for severe pain. 28 tablet 025 Active omeprazole (PriLOSEC) [address] capsuleIndicat ions:Gastroeso phageal reflux disease, unspecified whether esophagitis present TAKE 1 CAPSULE BY MOUTH EVERY DAY BEFORE A MEAL 30 capsule 5 025 Active metFORMIN XR (Glucophage-XR ) 500 MG 24 hr tabletIndicati ons:Type 2 diabetes mellitus with hyperglycemia, without long-term current use of insulin ([facility]/HCC) Take 2 tablets (1,000 mg) by mouth 2 times daily. Do not crush, chew, or split. 360 tablet 3 025 Active ipratropium (Atrovent) 0.06 % nasal spray SPRAY 2 SPRAYS IN EACH NOSTRIL FOUR TIMES DAILY 15 mL 3 024 2024 Discontinued(M ed list cleanup (will not trigger notification to Pharmacy)) fexofenadine (Liz) 60 MG tablet Take 1 tablet (60 mg) by mouth 2 times daily. 180 tablet 3 024 2024 Discontinued(M ed list cleanup (will not trigger notification to Pharmacy)) metFORMIN XR (Glucophage-XR ) 500 MG 24 hr tablet TAKE 2 TABLETS BY MOUTH TWICE DAILY 360 tablet 3 024 2024 Discontinued(R eorder (will not trigger notification to Pharmacy)) omeprazole (PriLOSEC) [address] capsuleIndicat ions:Gastroeso phageal reflux disease, unspecified whether esophagitis present TAKE 1 CAPSULE BY MOUTH EVERY DAY BEFORE A MEAL 30 capsule 5 025 2024 Discontinued traMADol (Ultram) 50 MG tabletIndicati ons:Right leg pain,Chronic bilateral low back pain, unspecified whether sciatica present TAKE 1 TABLET BY MOUTH ONCE DAILY NEEDED FOR SEVERE PAIN 28 tablet 025 2024 Discontinued(R eorder (will not trigger notification to Pharmacy)) Active Problems Problem Noted Date Diagnosed Date Long-term current use of opiate analgesic 2024 Mood disorder 07/18/2024 Assessment & Plan (11/04/2024 [...] disability placard, if appropriate -discussed about our STITCH SEPARATOR procedure; advised to reschedule appointment with STITCH SEPARATOR bale breaker operator & Plan (07/18/2024 4:13 PM EDT): -history [...] on forehead - recommended to speak with sales promotion manager for lesions near his eyes Sensorineural hearing loss (SNHL) of both ears 0 10/27/2022 Assessment & Plan (05/13/2023 6:09 AM EDT): -Will try to speak in low-pitch sounds -Encouraged to apple picking supervisor hearing aids Assessment & Plan (04/02/2023 6:34 AM EDT): -Will try to speak in low-pitch sounds -Encouraged to apple picking supervisor hearing aids Assessment & Plan (10/27/2022 12:40 [...] on 10/29/2024, rising -Co-managed with our pharmacist, MAURICE. -Continue working [...] or PCP visit. -Treatment Hx: --Tried Jardiance 2019, which was discontinued in 2021 due to [...] on 07/18/24, improving -Co-managed with our pharmacist, MAURICE. -Continue working on lifestyle modifications -Continue monitoring glucose. Current device - Freestyle Lite. CGM was not approved -Continue metformin XR 1000 mg bid -Continue dulaglutide (Trulicity) 4.5 mg weekly -Since he has recently started higher dose of dulaglutide, will not start dapagliflozin (Farxiga) at this time. Will reassess at next CDTM or PCP visit. -Treatment Hx: --Tried Jardiance 2019, which was discontinued in 2021 due to [...] 8.2% on 01/16/24 -Co-managed with our pharmacist, MAURICE. -Continue working on lifestyle modifications -Continue monitoring glucose. Current device - Freestyle Lite. Will send CGM because pt is having hypoglycemia and is on Trulicity -Continue metformin XR 1000 mg bid -Currently on 1.5 mg Trulicity due to back order, but will continue on 3.0 mg -Treatment Hx: --Tried Jardiance 2018, which was [...] March 2023 and discontinued glipizide; referred to [facility] in March 2023 (has not had an [...] mo or sooner prn - refer to [facility] Assessment & Plan (10/27/2022 12:31 PM EST): -Dx November 2009 -Hgb A1C 8.6%, improved from 9.8% in Jun 2022, but still not at goal -Continue working on lifestyle modifications -Continue checking BG -Continue metformin XR 1000 mg bid -Increase glipizide 5 mg with breakfast and 10 mg with afternoon meal -Treatment Hx: Tried Jardiance 2019, which was discontinued due to [...] (11/04/2024 10:24 AM EST): -Previously seen by stage settings painter, tried gabapentin, which was discontinued for unclear reason -Previously seen by [facility] provider. Dx DDD. Rx oxaprozin, PT. Discharged. -No longer following orthopedist or pain management -Ordered MRI in 2021, but he did not complete. Will order in the future when he develops concerning symptoms again. -Reviewed judicious and responsible use of tramadol -STITCH SEPARATOR agreement reviewed; patient will reschedule appointment. -Patient is currently using cane for ambulation and is trying to get a disability placard. Assessment & Plan (07/18/2024 4:16 PM EDT): -Previously seen by stage settings painter, tried gabapentin, which was discontinued for unclear reason -Previously seen by [facility] provider. Dx DDD. Rx oxaprozin, PT. Discharged. -No longer following orthopedist or pain management -Ordered MRI in 2021, but he did not complete. Will order in the future when he develops concerning symptoms again. -Reviewed judicious and responsible use of tramadol -STITCH SEPARATOR agreement review and monitoring up to date -Patient is currently using cane for ambulation and is trying to get a disability placard. Assessment & Plan (04/10/2024 8:54 AM EDT): -Previously seen by stage settings painter, tried gabapentin, which was discontinued for unclear reason -Previously seen by [facility] provider. Dx DDD. Rx oxaprozin, PT. Discharged. -No longer following orthopedist or pain management -Ordered MRI in 2021, but he did not complete. Will order in the future when he develops concerning symptoms again. -Reviewed judicious and responsible use of tramadol -STITCH SEPARATOR agreement review and monitoring up to date -Patient is currently using cane for ambulation and is trying to get a disability placard. Assessment & Plan (01/16/2024 12:21 PM EDT): -Previously seen by stage settings painter, tried gabapentin, which was discontinued for unclear reason -Previously seen by [facility] provider. Dx DDD. Rx oxaprozin, PT. Discharged. -No longer following orthopedist or pain management -Ordered MRI in 2021, but he did not complete. Will order in the future when he develops concerning symptoms again. -Reviewed judicious and responsible use of tramadol -STITCH SEPARATOR agreement review and monitoring up to date -Patient is currently using cane for ambulation and is trying to get a disability placard. Assessment & Plan (10/06/2023 6:40 AM EST): -Previously seen by stage settings painter, tried gabapentin, which was discontinued for unclear reason -Previously seen by [facility] provider. Dx DDD. Rx oxaprozin, PT. Discharged. -No longer following orthopedist or pain management -Ordered MRI in 2021, but he did not complete. Will order in the future when he develops concerning symptoms again. -Reviewed judicious and responsible use of tramadol -STITCH SEPARATOR agreement review and monitoring up to date Assessment & Plan (07/25/2023 4:49 AM EDT): -Previously seen by stage settings painter, tried gabapentin, which was discontinued for unclear reason -Previously seen by [facility] provider. Dx DDD. Rx oxaprozin, PT. Discharged. -No longer following orthopedist or pain management -Ordered MRI in 2021, but he did not complete. Will order in the future when he develops concerning symptoms again. -Reviewed judicious and responsible use of tramadol -STITCH SEPARATOR agreement review and monitoring up to date Assessment & Plan (05/13/2023 6:11 AM EDT): -Previously seen by stage settings painter, tried gabapentin, which was discontinued for unclear reason -Previously seen by [facility] provider. Dx DDD. Rx oxaprozin, PT. Discharged. -No longer following orthopedist or pain management -Evaluate with MRI -Reviewed judicious and responsible use of tramadol -STITCH SEPARATOR agreement review and monitoring up to date Assessment & Plan (04/02/2023 6:47 AM EDT): -Previously seen by stage settings painter, tried gabapentin, which was discontinued for unclear reason -Previously seen by [facility] provider. Dx DDD. Rx oxaprozin, PT. Discharged. -No longer following orthopedist or pain management -Evaluate with MRI -Reviewed judicious and responsible use of tramadol -STITCH SEPARATOR agreement review and monitoring up to date Assessment & Plan (10/27/2022 12:41 PM EST): -Reviewed judicious and responsible use of tramadol -STITCH SEPARATOR agreement review and monitoring up to date [...] Encounters Date Type Department Care Team Description 06/27/2025 Travel 06/23/2025 Refill [facility] [address] [place] [address] Antonella Burnham MD Gastroesophageal reflux disease, unspecified whether esophagitis present 06/18/2025 Refill [facility] [address] [place] [address] Sulma Alvarado RN Right leg pain; Chronic bilateral low back pain, unspecified whether sciatica present 06/18/2025 Telephone [facility] [address] [place] [address] Antonella Burnham MD telephone call 05/17/2025 9:00 AM EDT Clinical Support [facility] [address] [place] [address] Sulma Alvarado RN Chronic bilateral low back pain, unspecified whether sciatica present 05/17/2025 Travel 05/16/2025 Travel 05/07/2025 Refill [facility] [address] [place] [address] Cindy Cam MD Right leg pain; Chronic bilateral low back pain, unspecified whether sciatica present 04/25/2025 Refill [facility] [address] [place] [address] Negro Whitfield, PharmD Type 2 diabetes mellitus with hyperglycemia, without long-term current use of insulin ([facility]) 04/21/2025 Refill [facility] [address] [place] [address] Antonella Burnham MD Vitamin deficiency 04/15/2025 Refill [facility] [address] [place] [address] Antonella Burnham MD Right leg pain; Chronic bilateral low back pain, unspecified whether sciatica present from Last 3 Months Immunizations Immunization Administration Dates Next Due Hep B, adult [...] Sign Reading Time Taken Comments Blood Pressure 126/70 06/27/2025 10:59 AM EDT Pulse 87 06/27/2025 10:59 AM EDT Temperature 36.2 C (97.1 F) 10/29/2024 1:27 PM EST Respiratory Rate 19 10/29/2024 1:27 PM EST [...] Description 07/19/2025 10:30 AM EDT Clinical Support [facility] [address] [place] [address] Sulma Alvarado RN [address] [place] [address] 07/25/2025 9:00 AM EDT Office Visit [facility] [address] [place] [address] Antonella Burnham MD [address] [place] [address] 08/29/2025 11:00 AM EST Medication Management [facility] [address] [place] [address] Negro Whitfield, PharmD [address] [place] [address] Health Maintenance Due Date Last Done Comments CT Colonography 1956 FIT DNA/Cologuard 1956 FIT 1956 FOBT 1956 Sigmoidoscopy 1956 Alcohol/Substance Use Screening 1968 Depression Monitoring 01/15/2025 07/18/2024, 024 Diabetes: Foot Exam 01/15/2025 01/16/2024, 01/16/2024, 01/16/2024, Additional history exists COVID-19 Vaccine ( season) 2025 03/21/2021, 02/21/2021 Influenza Vaccine (#1) 2025 , 07/19/2023, 07/19/2022, Additional history exists SDOH Screening 07/18/2025 07/18/2024 Diabetes: Hemoglobin A1C 08/16/2025 025, 02/15/2025, 10/29/2024, Additional history exists Tobacco Screening 11/04/2025 11/04/2024 Diabetes: Urine Protein Screening 11/29/2025 11/29/2024, 12/29/2023, 05/12/2023, Additional history exists Lipid Panel 11/29/2025 11/29/2024, 03/0 04/2024, 10/28/2022, Additional history exists Eye Exam 06/01/2026 06/01/2024 Colonoscopy 04/07/2029 04/07/2019 Colorectal Cancer Screening 04/07/2029 DTaP/Tdap/Td Vaccines (4 - Td or Tdap) 06/07/2029 06/07/2019, 06/07/2019, 07/04/2012, Additional history exists Hepatitis B Vaccines Completed 12/18/2014, 01/15/2014, 10/04/2013 Hepatitis C Screening Completed 02/01/2020, 020 Zoster Vaccines Completed 08/20/2020, 05/25, 04/13/2018 Pneumococcal Vaccine: 50+ Years Completed 07/19/2022, 06/09/2009, 01/19/2001 RSV Patients and Patients Aged 60 years or older Completed 01/20/2024 HIB Vaccines Aged Out No longer eligi [...] patient's age to complete this topic Meningococcal B Vaccine Aged Out No l onger eligible based on patient's age to complete [...] Pressure 126/70(2024 10:59 AM EDT) No Negro Whitfield, Shyla Hemoglobin A1c < 7 Result Component 8.7( 11:25 AM EDT) No Negro Whitfield, Shyla Procedures Procedure Name Priority Date/Time Associated Diagnosis Comments POCT ELLIS-14 URINE DRUG SCREEN Routine 05/17/2025 9:02 AM EDT Chronic bilateral low back pain, unspecified whether sciatica present POCT GLYCATED HEMOGLOBIN, TOTAL Routine 05/16/2025 11:25 AM EDT Type 2 diabetes mellitus with hyperglycemia, without long-term current use of insulin ([facility]/HCC) ALBUMIN, RANDOM URINE W/CREATININE Routine 11/29/2024 8:42 AM EST Type 2 diabetes mellitus with hyperglycemia, without long-term current use of insulin (CMS/HCC) LIPID PANEL WITH REFLEX TO DIRECT LDL Routine 11/29/2024 8:42 AM EST Dyslipidemia DIABETES EYE EXAM Routine 06/01/2024 ZZZ HISTORICAL HEPATITIS C ANTIBODY RFLX Routine 02/01/2020 8:10 AM EDT COLONOSCOPY Routine 04/07/2019 from Last 3 Months or Most Recently Relevant to Health Maintenance Results * POCT ELLIS-14 Urine Drug Screen (05/17/2025 9:02 AM EDT) THC Negative Negative Cocaine Screen, Urine Negative Negative Opiate Screen, Urine Negative Negative Methamphetamine Screen Urine Negative Negative Amphetamine Screen, Urine Negative Negative Benzodiazepines Screen, Urine Negative Negative Barbiturate Screen, Urine Negative Negative Methadone Screen, Urine Negative Negative Buprenophine Screen, Urine Negative Negative TCA, Urine Negative Negative MDMA Urine Negative Negative ng/mL Oxycodone Screen, Urine Negative Negative Phencyclidine (PCP), Urine Negative Negative Propoxyphene, Urine Negative Negative Fentanyl, Urine Negative Negative Urine Urine specimen obtained by clean catch procedure / Unknown 05/17/2025 9:02 AM EDT Narrative Sulma Alvarado RN - 05/17/2025 9:02 AM EDT .UTOX cup Lot#[id number] Exp. 07/30/26 Internal Pass Control Antonella Burnham MD POINT OF CARE TEST ENTER/EDIT OR DERABLES Final Result * (ABNORMAL) POCT HGB A1C (05/16/2025 11:25 AM EDT) Hemoglobin A1C 8.7(A) 4.0 - 5.7 % QC Media Lot # [id number] Lot# Expiration Date 289 Blood 05/16/2025 11:2 5 AM EDT us Antonella Burnham MD POINT OF CARE TEST ENTER/EDIT OR DERABLES Final Result * Lipid Panel with Reflex to Direct LDL (11/29/2024 8:42 AM EST) Triglycerides 62 <150 mg/dL [facility] Comment:Desirable Triglyceri de: less than 150 mg/dLBorderline High Triglyceride 150-199 mg/dLHigh Triglyceride: 200-499 mg/dLVery High Triglyceride: greater than or equal to 5OO mg/dL Cholesterol 148 <200 mg/dL [facility] Comment:Desirable Cholestero l: less than 200 mg/dLBorderline High Cholesterol: 200-239 mg/dLHigh Cholesterol: greater than 239 mg/dL LDL Cholesterol Calculated 92 <100 mg/dL [facility] Comment:Desirable LDL: less than 100 mg/dLNear Optimal/Above Optimal LDL: 110- 129 mg/dLBorderline High LDL: 130-159 mg/dLHigh LDL: 160-189 mg/dLVery High LDL: greater than or equal to 190 mg/dL HDL Cholesterol 44 >40 mg/dL [facility] Comment:Desirable HDL: great er than 40 mg/dL Note: This HDL assay may give artificially low results in patients with liver disease. Blood 11/29/2024 8:42 AM EST 11/29/2024 11:12 AM EST Antonella Burnham MD LAB BLOOD ORDERABLES Final Resul t [facility] [address] [place] [phone] * Albumin, Random Urine W/Creatinine (11/29/2024 8:42 AM EST) Creatinine, Urine 316.47 mg/dL [facility] Microalbumin Urine 17.0 mg/L H [facility] Microalbum Creatinine Ratio Ur 5.3 <30 ug/mg cr [facility] Comment:Albumin/Creatinine R atio Reference Ranges: Normal: < 30 ug/mg creatinine Microalbuminuria: 30 - 300 ug/mg creatinineClinical Albuminuria: > 300 ug/mg creatinine Urine 11/29/2024 8:42 AM EST 11/29/2024 11:22 AM EST Antonella Burnham MD LAB URINE ORDERABLES Final Resul t [facility] [address] [place] [address] [phone] * Diabetes Eye Exam (06/01/2024) Eye Exam Normal Normal 06/01/2024 Historical [facility] Final Result * HEPATITIS C ANTIBODY RFLX (02/01/2020 8:10 AM EDT) HEPATITIS C ANTIBODY NONREACTIVE NONREACTIVE [facility] Comment: Antibodies to HCV not detected; does not exclude early acute HCV infection. 02/01/2020 8:10 AM EDT Antonella Burnham MD HISTORICAL/NON ORDERABLE LABS Fi nal Result Performing Organization Address City/[facility]/ZIP Co de Phone Number [facility] [address] [place] [address] * Colonoscopy (04/07/2019) Colonoscopy Normal Normal Historical [facility] Edited Result - Final from Last 3 Months or Most Recently Relevant to Health Maintenance Insurance [facility] [employer] (HMO D-SNP) [place] [id number] Care Teams Complaint Operator Relationship Specialty Start Date End Date Antonella Burnham MD [address] [place] [address] PCP - General Family Medicine 10/24/18 Negro Whitfield, MaicolD [address] [place] [address] Pharmacist Internal Medicine 01/20/24
--- OUTSIDE RECORDS SUMMARY | 2025-07-08 08:51 | XMS_ITS | Encounter Summary ---
Author Organization [employer] Address [address] [facility] [address] [place] [address] Care Team Providers Care Casket Inspector Name Role Phone Antonella Burnham MD Primary Care Provider [phone] Negro Whitfield PharmD Unavailable [phone] Encounter Details Date Type Department Care Team (Late st Contact Info) Description 11/03/2022 Telephone [facility] [address] [place] [phone] Antonella Burnham MD [address] [place], [place] [phone] Social History Tobacco Use Types Packs/Day Years [...] Description 07/19/2025 10:30 AM EDT Clinical Support [facility] [address] [place], [place] [phone] Sulma Alvarado RN [address] [place] [address] 07/25/2025 9:00 AM EDT Office Visit [facility] [address] [place] [phone] Antonella Burnham MD [address] [place] [phone] 08/29/2025 11:00 AM EST Medication Management [address] [address] Negro Whitfield, Shyla [address] [place] [phone] documented as of this encounter Visit Diagnoses Not on filedocumented in this encounter Care Teams Casket Inspector Relationship Specialty Start Date End Date Antonella Burnham MD [address] [place] [phone] PCP - General Family Medicine 10/24/18 Negro Whitfield, Shyla [address] [place] [phone] Pharmacist Internal Medicine 01/20/24 documented as of this encounter
--- OUTSIDE RECORDS SUMMARY | 2025-07-08 08:51 | XMS_ITS | Encounter Summary ---
Author Organization [employer] Address [address] [facility] 7t [place] [address] Care Team Providers Care Geothermal Powerplant Mechanic Helper Name Role Phone Antonella Burnham MD Primary Care Provider [phone] Negro Whitfield PharmD Unavailable [phone] Encounter Details Date Type Department Care Team (Late st Contact Info) Description 07/25/2024 Abstract [facility] MEDICINE [address] [place] [address] Felicita Barrett MA Social History Tobacco Use [...] Upcoming Encounters Date Type Department Care Team ([facility] st Contact Info) Description 07/19/2025 10:30 AM EDT Clinical Support [address] [address] Sulma Alvarado RN [address] [place] [address] 07/25/2025 9:00 AM EDT Office Visit [address] [address] Antonella Burnham MD [address] [place] [address] 08/29/2025 11:00 AM EST Medication Management [address] [address] Negro Whitfield, MaicolD [address] [place] [address] documented as of this encounter Goals Goal Patient Goal Type Associated Problems Recent Progress Patient-Stated? Author Blood Pressure < 140/90 Blood Pressure 126/70(2024 10:59 AM EDT) No Negro Whitfield, PharmRoberta Hemoglobin A1c < 7 Result Component 8.7( 11:25 AM EDT) No Negro Whitfield, Shyla documented as of this encounter Procedures Procedure Name Priority Date/Time Associated Diagnosis Comments HM DIABETES EYE EXAM Routine 06/01/2024 documented in this encounter Results * Diabetes Eye Exam (06/01/2024) Eye Exam Normal Normal 06/01/2024 Historical Provider HEALTH MAINTENANCE Final Result documented in this encounter Visit Diagnoses Not on filedocumented in this encounter Additional Health Concerns Assessment Noted Time PHQ-9 Depression Total Score: 11 024 10:18 AM EDT documented as of this encounter Care Teams Geothermal Powerplant Mechanic Helper Relationship Specialty Start Date End Date Antonella Burnham MD [address] [place] [address] PCP - General Family Medicine 10/24/18 Negro Whitfield, PharmD [address] [place] [address] Pharmacist Internal Medicine 01/20/24 documented as of this encounter
--- OUTSIDE RECORDS SUMMARY | 2025-07-08 08:51 | XMS_ITS | Encounter Summary ---
Author Organization [employer] Address 75 [facility] 7t [place] [address] Care Team Providers Care Tool And Die Assembler Name Role Phone Antonella Burnham MD Primary Care Provider [phone] Negro Whitfield PharmD Unavailable [phone] Encounter Details Date Type Department Care Team ([facility] st Contact Info) Description 09/10/2024 Telephone [facility] MEDICINE [address] [place] [address] Galilea Hanna, PharmD [address] [place] [address] Social History Tobacco Use Types Packs/Day Years [...] Description 07/19/2025 10:30 AM EDT Clinical Support [address] [address] Sulma Alvarado RN [address] [place] [address] 07/25/2025 9:00 AM EDT Office Visit [address] [address] Antonella Burnham MD [address] [place] [address] 08/29/2025 11:00 AM EST Medication Management [address] [place] [address] Negro Whitfield PharmD [address] [place] [address] documented as of this encounter Goals Goal Patient Goal Type Associated Problems Recent Progress Patient-Stated? Author Blood Pressure < 140/90 Blood Pressure 126/70(2024 10:59 AM EDT) No Negro Whitfield PharmD Hemoglobin A1c < 7 Result Component 8.7( 11:25 AM EDT) No Negro Whitfield PharmD documented as of this encounter Visit Diagnoses Not on filedocumented in this encounter Additional Health Concerns Assessment Noted Time PHQ-9 Depression Total Score: 11 024 10:18 AM EDT documented as of this encounter Care Teams Tool And Die Assembler Relationship Specialty Start Date End Date Antonella Burnham MD [address] [place] [address] PCP - General Family Medicine 10/24/18 Negro Whitfield PharmD [address] [place] [address] Pharmacist Internal Medicine 01/20/24 documented as of this encounter
--- OUTSIDE RECORDS SUMMARY | 2025-07-08 08:51 | XMS_ITS | Encounter Summary ---
Author Organization [employer] Address [address] [place] [address] 7 [place] [address] Care Team Providers Care Veneer Sawyer Name Role Phone Antonella Burnham MD Primary Care Provider [phone] Negro Whitfield PharmD Unavailable [phone] Reason for Visit * Reason Comments Med Refill Encounter Details Date Type Department Care Team (Late st Contact Info) Description 06/29/2023 Refill [facility] MEDICINE [address] [place], [place] [phone] Antonella Burnham MD [address] [place] [address] Gastroesophageal reflux disease, unspecified whether esophagitis present [...] Description 07/19/2025 10:30 AM EDT Clinical Support [facility] MEDICINE [address] [place] [address] Sulma Alvarado RN [address] [place] [address] 07/25/2025 9:00 AM EDT Office Visit [facility] MEDICINE [address] [place] [address] Antonella Burnham MD [address] [facility] [place] [address] 08/29/2025 11:00 AM EST Medication Management [facility]INE [address] [place] [address] Negro Whitfield, PharmD [address] [place] [address] documented as of this encounter Visit Diagnoses Diagnosis Gastroesophageal reflux disease, unspecified whether esophagitis present documented in this encounter Additional Health Concerns Assessment Noted Time PHQ-9 Depression Total Score: 11 023 1:11 PM EDT documented as of this encounter Care Teams Veneer Sawyer Relationship Specialty Start Date End Date [place] [address] PCP - General Family Medicine 10/24/18 Negro Whitfield, PharmD [address] [place] [address] Pharmacist Internal Medicine 01/20/24 documented as of this encounter
--- OUTSIDE RECORDS SUMMARY | 2025-07-08 08:51 | XMS_ITS | Encounter Summary ---
Author Organization [employer] Address [address] [facility] 7t [place] [address] Care Team Providers Care Passenger Conductor Name Role Phone Antonella Burnham MD Primary Care Provider [phone] Negro Whitfield PharmD Unavailable [phone] Encounter Details Date Type Department Care Team (Late st Contact Info) Description 03/22/2023 Orders Only [facility] MEDICINE [address] [place] [address] [phone] Antonella Burnham MD [address] [place] [address] [phone] Severe episode of recurrent major depressive disorder, [...] Description 07/19/2025 10:30 AM EDT Clinical Support [facility] [address] [place] [address] [phone] Sulma Alvarado RN [address] [place], [place] [phone] 07/25/2025 9:00 AM EDT Office Visit [facility] [address] [place] [address] [phone] Antonella Burnham MD [address] [place] [address] 08/29/2025 11:00 AM EST Medication Management [facility] [address] [place] [address] [phone] Negro Whitfield, PharmD [address] [place] [address] documented as of this encounter Visit Diagnoses Diagnosis Severe episode of recurrent major depressive disorder, without psychotic features (CMS/HCC)- Primary documented in this encounter Care Teams Passenger Conductor Relationship Specialty Start Date End Date Antonella Burnham MD [address] [place] [address] [phone] PCP - General Family Medicine 10/24/18 Negro Whitfield, PharmD [address] [place] [address] [phone] Pharmacist Internal Medicine 01/20/24 documented as of this encounter
--- OUTSIDE RECORDS SUMMARY | 2025-07-08 08:51 | XMS_ITS | Encounter Summary ---
Author Organization [employer] Address [address] [facility] 7t [place] [address] Care Team Providers Care Faculty Instructor Name Role Phone Antonella Burnham MD Primary Care Provider [phone] Negro Whitfield PharmD Unavailable [phone] Encounter Details Date Type Department Care Team (Late st Contact Info) Description 10/27/2022 Abstract [facility] MEDICINE [address] [place], [place] [phone] Antonella Burnham MD [address] [place] [address] Social History Tobacco Use Types Packs/Day Years [...] Description 07/19/2025 10:30 AM EDT Clinical Support [facility] MEDICINE [address] [place] [address] Sulma Alvarado RN [address] [place] [address] 07/25/2025 9:00 AM EDT Office Visit [facility] MEDICINE [address] [place] [phone] Antonella Burnham MD [address] [place] [address] 08/29/2025 11:00 AM EST Medication Management [address] [address] Negro Whitfield, Shyla [address] [place] [address] documented as of this encounter Visit Diagnoses Not on filedocumented in this encounter Care Teams Faculty Instructor Relationship Specialty Start Date End Date Antonella Burnham MD [address] [place] [address] PCP - General Family Medicine 10/24/18 Negro Whitfield, Shyla [address] [place] [address] Pharmacist Internal Medicine 01/20/24 documented as of this encounter
[2025-07-08 12:06] LABS: Alanine Aminotransferase 41 U/L (0-40); Albumin Level 4.2 g/dL (3.5-5.0); Alkaline Phosphatase 59 U/L (39-117); Aspartate Amino Transferase 34 U/L (5-37); Cholesterol 160 mg/dL (<200); HDL Cholesterol 42 mg/dL (>40); Total Protein 6.7 g/dL (6.5-8.0); Triglycerides 111 mg/dL (<150)
== END 2025-07-08 08:12 | disposition home or self-care (01) ==
LOC: HO.HHCL 08:11
PROVIDERS: PCP Family Medicine; Visit Provider Family Medicine
DX: E11.65 Type 2 diabetes mellitus with hyperglycemia (principal)
CPT/HCPCS: 36415; 80061; 80076